=== PATIENT | male | born 1950 | race Caucasian/White ===

== ENCOUNTER 2023-05-24 13:19 | Outpatient (CLI) | payer MEDICARE, OTHER, SELFPAY ==
--- NOTE | 2023-05-24 13:25 | VDLE_ITS ---
Reason For Study: Pre op planning RIGHT LEFT GSV prox thigh - 0.57 x 0.65 cm GSV prox thigh - 0.58 x 0.58 cm GSV mid thigh - 0.58 x 0.62 cm GSV mid thigh - 0.50 x 0.50 cm GSV dist thigh - 0.46 x 0.47 cm GSV dist thigh - 0.43 x 0.44 cm GSV Knee - 0.40 x 0.43 cm GSV Knee - 0.38 x 0.43 cm GSV prox calf - 0.33 x 0.35 cm GSV prox calf - 0.42 x 0.43 cm GSV mid calf - 0.44 x 0.46 cm GSV mid calf - 0.25 x 0.26cm GSV dist calf - 0.34 x 0.36 cm GSV dist calf - 0.39 x 0.41 cm ASV prox thigh - 0.37 x 0.37 cm SSV prox calf - 0.21 x 24 cm ASV mid thigh - 0.31 x 0.33 cm SSV mid calf - 0.35 x 0.35 cm ASV dist thigh - 0.25 x 0.25 cm SSV dist calf - 0.34 x 0.37 cm ASV Knee - 0.29 x 0.32 cm Multiple branches noted coming off of the GSV SSV prox calf - 0.44 x 0.56 cm and SSV. SSV mid calf - 0.46 x 0.48 cm GSV, SSV and ASV all compressible. SSV dist calf - 0.39 x 0.42 cm Multiple branches noted coming off of the GSV, ASV and SSV. GSV, SSV and ASV all compressible. Procedure This is a venous duplex using B-mode, color flow and spectral Doppler. Exam performed in department. VL/Saphenous Vein Mapping, Bilat Interpretation Summary Right great saphenous and accessory saphenous veins patent with measurements ab ove. Right small saphenous vein patent with measurements above Left great saphenous veins patent with measurements above. Left small saphenous vein patent with measurements above Ordering Physician: Anurag Rodriguez Performed By: Micaela Jerry RVT
== END 2023-05-24 23:59 | disposition home or self-care (01) ==
PROVIDERS: Referring Provider Surgery Trauma Surgery; Visit Provider Surgery Trauma Surgery
DX: Z01.818 Encounter for other preprocedural examination (principal); I70.213 Atherosclerosis of native arteries of extremities with intermittent claudication, bilateral legs; M79.661 Pain in right lower leg; M79.662 Pain in left lower leg
CPT/HCPCS: 93970

== ENCOUNTER 2023-07-11 06:24 | Inpatient (IN) | payer MEDICARE, OTHER, SELFPAY ==
[2023-07-11] VITALS (19 sets, daily range): BP systolic 95–140; BP diastolic 54–73; PULSE 52–81; RESP 12–18; TEMP 36.2–36.5; O2SAT 92–99; BMI 26.1; BMI 26.2
[2023-07-11] MEDS: Lactated Ringers 1,000 ML 15 ML IV (06:57)
[2023-07-11 06:59] LABS: Hemoglobin 17.9 g/dL (13.0-16.5)
--- NOTE | 2023-07-11 07:31 | PCM.HP.STD ---
HPI - General General Date of Admission: 07/11/23 HPI Narrative FARIBA BANEGAS, is a 72 M who presents with right lower extremity claudication. He has failed medical tx and presents now for bypass. [facility] Medical History (Updated 07/05/23 @ 14:34 by Kelly Medina) Back pain Cardiology follow-up encounter Chronic cough Diabetes History of echocardiogram History of pain when walking History of recent vascular procedure (~11/2022) History of stress test Hyperlipidemia Hypertension Injury of head and neck Loss of hearing Pulmonary heart disease Restless legs Shortness of breath on exertion Smoker Wears glasses Home Medications alirocumab 75 mg/mL subcutaneous pen injector (Praluent Pen) 75 mg subcut Q14D CHOLESTEROL 12/19/22 [History Last Taken 07/10/23] aspirin 81 mg tablet,delayed release 81 mg PO DAILY HEART HEALTH 12/19/22 [History Last Taken 07/10/23] carvedilol 12.5 mg tablet (Coreg) 12.5 mg PO BID HEART 12/19/22 [History Last Taken 07/11/23 05:00] cholecalciferol (vitamin D3) 25 mcg (1,000 unit) capsule 25 mcg PO DAILY SUPPLEMENT 12/19/22 [History Last Taken 07/09/23] coenzyme Q10 100 mg capsule 100 mg PO DAILY SUPPLEMENT 12/19/22 [History Last Taken 07/09/23] ezetimibe 10 mg tablet (Zetia) 10 mg PO DAILY CHOLESTEROL 12/19/22 [History Last Taken 07/10/23] gabapentin 400 mg capsule (Neurontin) 400 mg PO TID NEUROPATHY 12/19/22 [History Last Taken 07/11/23] magnesium 200 mg tablet 400 mg PO DAILY SUPPLEMENT 12/19/22 [History Last Taken 07/09/23] oxycodone-acetaminophen 7.5 mg-325 mg tablet (Percocet) 1 tab PO Q6H PAIN 12/19/22 [History Last Taken 07/11/23 04:00] semaglutide 0.25 mg or 0.5 mg (2 mg/3 mL) subcutaneous pen injector (Ozempic) 0.5 mg subcut WE DIABETES 01/03/23 [History Last Taken 07/11/23 04:30] biotin 10,000 mcg capsule 10,000 mcg PO DAILY SUPPLEMENT 07/05/23 [History Last Taken 07/09/23] niacin 500 mg tablet 500 mg PO TID PVD 07/05/23 [History Last Taken 07/10/23] ropinirole 4 mg tablet 4 mg PO QHS RLS 07/05/23 [History Last Taken 07/10/23 19:00] vitamin B complex 1 cap PO DAILY SUPPLEMENT 07/05/23 [History Last Taken 07/10/23] Allergy/AdvReac Type Severity Reaction Status Date / Time No Known Allergies Allergy Verified 07/11/23 06:42 Family History Mother CAD (coronary artery disease) Father CAD (coronary artery disease) Surgical History (Updated 07/05/23 @ 14:34 by Klely Mednia) H/O hernia repair History of back surgery (~2014) History of coronary artery stent placement Hx of tonsillectomy S/P ablation of atrial fibrillation (~2013) Social History Smoking Status: Current every day smoker tobacco type: cigarettes Tobacco: How many years used: 30 alcohol intake: current substance use type: does not use ROS Constitutional Constitutional: Denies chills, fever(s), frequent falls, lethargy or weakness Eyes Eyes: Denies blind spots, change in vision or loss of vision ENT HEENT: Denies bleeding gums, hoarseness or sore throat Cardiovascular Cardiovascular: Denies abdominal pain, bluish discoloration of hand/feet, chest pain with activity, claudication, cold extremities, cyanosis, dyspnea on exertion, erythema on extremities, irregular heart rhythm, leg edema, leg ulcers, numbness in extremities or weakness in extremities Respiratory/Chest Respiratory/Chest: Denies cough, excessive phlegm production, shortness of breath at rest, shortness of breath with exertion or wheezing Gastrointestinal Gastrointestinal: Denies anorexia, change in stool character, constipation, diarrhea, melena or rectal bleeding Genitourinary Genitourinary: Denies dysuria or hematuria Musculoskeletal Musculoskeletal: Denies abnormal gait Integumentary Integumentary: Reports other Details: ; Denies erythema, non-healing lesions or wounds Neurologic Neurologic: Denies abnormal speech, focal weakness, headache(s), loss of vision, numbness, paresthesias or sensory deficit Hematologic/Lymphatic Hematologic/Lymphatic: Denies easy bleeding, easy bruising or lymphadenopathy Vital Signs Vital Signs Vital Signs: 07/11/23 06:46 07/11/23 06:48 Temperature 97.1 F L Temperature Source Temporal Pulse Rate 68 Respiratory Rate 18 Respiratory Pattern Normal Blood Pressure 124/63 H Blood Pressure Mean 83 Blood Pressure Source Monitor Blood Pressure Position Semi-Fowlers Blood Pressure Location Left Arm Pulse Ox 99 Oxygen Delivery Method Room Air Weight Weight: 177 lb Body Mass Index (BMI) 26.1 Physical Exam Const alert, oriented x3, no apparent distress and healthy appearing General Appearance: cooperative; Negative for combative or lethargic Orientation / Consciousness: awake Exam Limitations: no limitations HEENT Head and Scalp: normocephalic and atraumatic Eyes EOMs intact bilaterally General Eye: normal appearance of both eyes Neck full ROM, no lymphadenopathy, thyroid normal and No no carotid bruits General: trachea midline; Negative for lymphadenopathy or tenderness Thyroid: thyroid normal Lymph Lymphatic: Negative for no lymphadenopathy noted Resp normal respiratory effort, no use of accessory muscles and clear to auscultation bilaterally Effort and Inspection: Negative for labored, stridor or audible wheezes Cardio regular rate, regular rhythm and no murmurs Peripheral Pulses: brachial pulses present, radial pulses present, femoral pulses present, popliteal pulses present, posterior tibial pulses present and dorsalis pedis pulses present GI non-tender and non-distended; Negative for hepatosplenomegaly Back/Spine Cervical Spine: cervical ROM normal Extremity full ROM, normal capillary refill and no clubbing, cyanosis or edema Skin no rashes or lesions noted and no wounds Neuro oriented x3, CN's II-XII intact bilaterally, no focal motor deficits and no sensory deficits noted Psych thought process normal, cooperative, affect normal, speech normal and activity/motor behavior normal Results Lab / Micro Data 07/11/23 06:50 07/11/23 06:50 Labs: Laboratory Results - last 24 hr 07/11/23 06:50: Hgb 17.9 H, Potassium 4.0 Assessment & Plan Assessment/Plan (1) Atherosclerosis of [place] arteries of extremities with intermittent claudication, bilateral legs: PLAN: -right fem-pop with vein
[2023-07-11] MEDS: Cefazolin 2 GM in 0.9% Normal Saline (100mL Bag) 100 ML IV (07:42)
[2023-07-11 07:57] LABS: Bedside Glucose 91 mg/dL (74-106)
[2023-07-11 08:20] LABS: Hemoglobin A1c 5.7 % (3.8-5.6)
[2023-07-11] MEDS: Heparin 10,000 UNITS/10 ML Vial 10000 UNITS (08:24)
[2023-07-11] MEDS: Heparin Injection (Vial) 5,000 UNIT/ML VIAL 5000 UNIT (08:24)
[2023-07-11] MEDS: Cefazolin 1 GM/50 ML BAG IV ×2 (11:42→20:13)
[2023-07-11 12:45] LABS: Bedside Glucose 122 mg/dL (74-106)
--- NOTE | 2023-07-11 13:06 | PCM.OPRPT ---
Report of Operation Date of Procedure: 07/11/23 Pre-Operative Diagnosis: atherosclerosis with claudication right lower extremity Post-Operative Diagnosis: same Surgery/Procedure Performed:: right femoral-below knee popliteal bypass with reversed GSV Description of Surgical Findings:: +DP pulse Surgeon: Anurag Rodriguez Type of Anesthesia: General Estimated Blood Loss (mL): 200 Description of Procedure: HPI: Patient is a 72-year-old male with lifestyle limiting claudication right lower extremity. He has failed conservative therapy and did not have any good endovascular options so he presents now for right femoral to below-knee popliteal bypass with saphenous vein. Description of procedure: Upon obtaining informed consent and verification correct patient procedure site patient taken to the operating was placed under general anesthesia. He was then positioned prepped and draped in usual sterile fashion a timeout was performed. Ultrasound was used to lizzette the saphenous vein which was satisfactory in caliber throughout its length. Oblique incision was made 2 fingerbreadths inferior to the inguinal ligament above electrocautery to dissect down through subcutaneous tissue. Self-retaining retractors then put in position further dissection carried down to the femoral sheath. The femoral sheath was incised vertically and the self-retaining retractor moved deeper in the wound. Sharp dissection used dissect free the common femoral artery proximally up to the inguinal ligament distally down to its bifurcation. Writing was used to place a vessel proximal and distal and the vessel was noted to be soft with no plaque. Next longitudinal incision was made 2 fingerbreadths medial to the tibia and Bovie electrocautery was dissect down through subcutaneous tissue. At the superior aspect of the incision care was taken to identify and protect the saphenous vein. Dissection was then carried down to the fascia which was then incised and self-retaining retractors put in position. Next combination of blunt and Bovie dissection was used to dissect down to the popliteal vessels and sharp dissection used to dissect free the popliteal artery proximal and distal. The vessel was noted to be soft with no significant plaque and a right angle to place a vessel loop proximal and distal. Next the saphenous vein was exposed with a skip incision along the medial aspect of the thigh with side branches ligated with silk ties and divided. Once the entire length of the saphenous vein was dissected free and all sidebranches had been ligated a tunneler was then used to tunnel from the popliteal incision to the femoral incision in the anatomic space. Patient was then heparinized allowed circulate for 3 minutes. The distal aspect of the saphenous vein was then ligated with silk ties and divided and the vein pulled through each of the skip incisions up to the femoral incision. The saphenofemoral junction was then clamped and the vessel transected and placed within heparinized saline. The saphenofemoral junction stump was then oversewn with 5-0 Prolene in 2 layers. Next the vein was flushed heparinized saline it was noted that there was a an aneurysmal segment so this segment of the aneurysm was excised and the vessel closed with 6-0 Prolene in a running fashion. Otherwise all sidebranches were adequately controlled and there was no significant leak or stenosis when pressurized. The vein was then oriented in reverse fashion and the femoral vessels occluded with Vesseloops. A longitudinal arteriotomy was created 11 blade extended Morgan scissors after which the vein was beveled to match the arteriotomy and anastomosis performed with a 6-0 Prolene running fashion. After completing suture line the vessels were flushed and the graft and the clamps removed. Satisfactory stasis was noted from the suture line and the vein was allowed to pressurize. All sidebranches were intact and there was brisk pulsatile flow through the bypass. The vein was then marked to maintain orientation and secured to the tunneler then pulled through to the popliteal incision. Popliteal artery was then occluded with Vesseloops longitudinal arteriotomy was created with 11 blade and the Morgan scissors. The vein was then cut the length and beveled to match the arteriotomy after which it was secured with a 6-0 Prolene in a running fashion. Prior to completing suture line the graft and vessels were backbled and after completing suture line the clamps were removed. There is satisfactory stasis and there is palpable pulse across the anastomosis into the distal vessel. She is also noted a palpable dorsalis pedis and posterior tibial pulse in the foot. The incisions were then inspected hemostasis and the vein harvest sites incision closed with 3-0 Vicryl followed for Monocryl. The arterial sites were closed with 2-0 Vicryl, 3-0 Vicryl, 4 Monocryl and Dermabond for the skin. At the inclusion of case patient would have anesthesia taken recovery anticipated admission intensive care unit.
[2023-07-11 14:36] LABS: Bedside Glucose 116 mg/dL (74-106)
[2023-07-11] MEDS: 0.45% Normal Saline 1,000 ML 100 ML IV (15:20)
[2023-07-11] MEDS: Acetaminophen 500 MG Tablet 1000 MG PO ×2 (15:26→21:37)
[2023-07-11] MEDS: Gabapentin 400 MG Capsule PO ×2 (15:30→21:39)
[2023-07-11] MEDS: HYDROmorphone 0.5 MG/0.5 ML SYRINGE IV ×2 (15:30→23:13)
[2023-07-11 16:03] LABS: Bedside Glucose 118 mg/dL (74-106)
--- NOTE | 2023-07-11 16:41 | CASEMGMT ---
RN?CM?STRIP PICKER?CM?to room to meet with patient for initial transition planning/care coordination?assessment.?RN?CM?introduced self and role at [facility].? Pt voices understanding and consents to?assessment?at this time.? Pt resting in bed in no distress at this time.? and dtr @ bedside and pt agreeable to them both being present during assessment. Pt is A/O at this time and answers all questions appropriately.?? Care providers, pharmacy, and demographics verified/updated at this time. PCP: Dr Mode Joshi Specialists: Dr Rodriguez-vascular, Dr Clarke-ui designer @ [facility], Dr Christianson- [place] pulmonology, Dr Deleon-[place] pain mgnt, tenter frame operator in [place]--pt does not remember name. Preferred Pharmacy: [facility] Retail @ discharge Insurance: MCR, MMO Prescription Benefit:?yes Living Will/HPOA:?Has LW and HCPOA, who is his , Jayne. Pt states dtrAracely, is 1st alternative. LNOK: , Jayne. Dtr, Aracely Living Arrangements: Lives w/ in one-story home w/basement w/2 steps to enter. Pt states does okay w/the stairs. Pt does go to the basement to shower, but there is a bathroom on the main floor as well. Independent w/ADL's. Pt and share home mgnt tasks. Pt manages his own medications. Transportation:?Pt states drives self and states no transportation concerns at this time.? also drives. DME: ? Denies using any DME and denies needs.? He does have the following DME available, if needed: cane, walker, W/C, crutches HHC/SNF: No hx of either. Has done Cardiac Rehab in the past. PT/OT evals pending. Pt wishes to return home and states has no concerns with going home at time of discharge.? CM?to follow for any discharge planning/needs.? Pt voices no concerns/needs at this time.? Advised pt to ask for?CM?if any questions/concerns/needs arise.? Voices understanding. PLAN:??Home w/family support and discharge plans in place. PT/OT evals pending. Tena BSN?RN?CM
[2023-07-11] MEDS: oxyCODONE 5 MG Tablet PO ×2 (17:03→23:09)
[2023-07-11] MEDS: HEPARIN/D5w 25,000 UNITS 25,000 UNITS/250 ML IV.SOLN. 5 UNITS CONT INF (17:50)
[2023-07-11] MEDS: Pramipexole Di-HCl 1 MG Tablet 1.5 MG PO (17:50)
[2023-07-11] MEDS: Carvedilol 12.5 MG Tablet PO (21:38)
[2023-07-11 22:03] LABS: Bedside Glucose 158 mg/dL (74-106)
[2023-07-12] VITALS (16 sets, daily range): BP systolic 94–119; BP diastolic 34–74; PULSE 52–74; RESP 12–18; TEMP 36.5–36.6; O2SAT 92–99; BMI 26.9
[2023-07-12] MEDS: 0.45% Normal Saline 1,000 ML 100 ML IV (01:20)
[2023-07-12] MEDS: Cefazolin 1 GM/50 ML BAG IV (03:24)
[2023-07-12] MEDS: HYDROmorphone 0.5 MG/0.5 ML SYRINGE IV (03:26)
[2023-07-12] MEDS: oxyCODONE 5 MG Tablet PO ×3 (05:03→13:40)
[2023-07-12] MEDS: Acetaminophen 500 MG Tablet 1000 MG PO ×2 (05:04→13:40)
[2023-07-12] MEDS: Gabapentin 400 MG Capsule PO ×2 (05:04→13:40)
[2023-07-12 05:21] LABS: Absolute Lymphocyte Count 1.16 X10^3/uL (0.83-4.51); Absolute Neutrophil Count 9.3 X10^3/uL (2.0-7.7); Basophil# 0.02 X10^3/uL; Basophil% 0.2 % (0-1); Hematocrit 45.1 % (40-54); Hemoglobin 14.8 g/dL (13.0-16.5); Lymphocyte # 1.16 X10^3/ul (0.83-4.51); Mean Corp Hgb Conc 32.8 g/dL (32-36); Mean Corpuscular Hgb 30.2 pg (27.0-32.0); Mean Platelet Vol. 9.7 fl (6.2-12.0); Monocyte# 0.98 X10^3/uL; Monocyte% 8.5 % (0-10); NRBC Flagged by Analyzer 0 % (0-5); Neutrophil # 9.33 X10^3/uL (2.7-7.7); Neutrophil % 80.6 % (47-70); Platelet Count 143 K/mm3 (150-450); RBC Distribution Width CV 16.3 % (11.6-14.6); RBC Distribution Width SD 55.6 fl (35.1-43.9); White Blood Count 11.6 K/mm3 (4.4-11.0)
[2023-07-12 05:41] LABS: Anion Gap 2 (5-15); BUN 13 mg/dL (7-18); BUN/Creat Ratio 19.7 RATIO (10-20); Calcium,Total 7.4 mg/dL (8.5-10.1); Chloride 110 mmol/L (98-107); Creatinine, Serum 0.66 mg/dL (0.70-1.30); EST Glomerular Filtration Rate 127 mL/min (>60); Est Glom Filt Rate - Afr Amer 153 mL/min (>60); Estimated Creatinine Clearance 65.55 ml/min; Glucose 150 mg/dL (74-106); Sodium Level 139 mmol/L (136-145)
--- NOTE | 2023-07-12 08:22 | PCM.PN.SRG ---
Subjective Subjective Patient is doing okay this morning. Reports pain is currently tolerable, but he has not moved very much yet. He tolerated normal dinner last night. Denies N/V, chills, CP, SOB, palpitations, presyncope. Objective Data Objective Data Vital Signs: Vital Signs Temp Pulse Resp BP Pulse Ox O2 Del Method O2 Flow Rate 97.7 F L 69 15 104/54 L 95 Nasal Cannula 2 07/12/23 03:00 07/12/23 07:00 07/12/23 07:00 07/12/23 07:00 07/12/23 08:09 07/12/23 08:09 07/12/23 08:09 Oxygen Flow Rate (L/min) 2 Oxygen Delivery Method Nasal Cannula Weight: 181 lb 14.102 oz Body Mass Index (BMI) 26.9 Intake & Output: Intake and Output for Last 24 Hours 07/10/23 07/11/23 07/12/23 23:59 23:59 23:59 Intake Total 2352 / 2352 1050 / 1050 Output Total 1085 / 2085 1650 / 1650 Balance 1267 / 267 -600 / -600 Lab / Micro Data 07/12/23 05:10 07/12/23 05:10 Labs: Laboratory Results - last 24 hr 07/11/23 06:50: Blood Type A POSITIVE, Antibody Screen NEGATIVE 07/11/23 12:11: POC Glucose 122 H 07/11/23 13:29: POC Glucose 116 H 07/11/23 15:27: POC Glucose 118 H 07/11/23 21:36: POC Glucose 158 H 07/12/23 05:10: WBC 11.6 H, RBC 4.90, Hgb 14.8, Hct 45.1, MCV 92.0, MCH 30.2, MCHC 32.8, RDW Std Deviation 55.6 H, RDW Coeff of [place] 16.3 H, Plt Count 143 L, MPV 9.7, Immature Gran % (Auto) 0.700, Neut % (Auto) 80.6 H, Lymph % (Auto) 10.0 L, [place] % (Auto) 8.5, Eos % (Auto) 0.0, Baso % (Auto) 0.2, Absolute Neuts (auto) 9.3 H, Absolute Lymphs (auto) 1.16, Nucleated RBC % 0, Sodium 139, Potassium 4.0, Chloride 110 H, Carbon Dioxide 27.0, Anion Gap 2 L, BUN 13, Creatinine 0.66 L, Estim Creat Clear Calc 65.55, Est GFR (MDRD) Af Amer 153, Est GFR (MDRD) Non-Af 127, BUN/Creatinine Ratio 19.7, Glucose 150 H, Calcium 7.4 L Physical Exam Const alert, oriented x3 and no apparent distress General Appearance: cooperative HEENT normocephalic, head/scalp atraumatic, hearing grossly normal bilaterally, external ears normal and external nose normal Eyes EOMs intact bilaterally General Eye: normal appearance of both eyes Neck General: normal visual inspection and trachea midline Resp normal respiratory effort, no retractions and no use of accessory muscles Effort and Inspection: able to speak in complete sentences; Negative for labored, grunting, stridor or audible wheezes Cardio regular rate and regular rhythm Extremity Extremity Narrative: RLE warm and pink, palpable DP/PT pulses R groin incision with vacuum dressing overlying C/D/I, maintaining seal; R thigh and R calf incision sites with silver dressings overlying C/D/I; no significant swelling, ecchymosis, erythema. Skin no rashes or lesions noted Neuro CN's II-XII intact bilaterally, moves all extremities, no focal motor deficits and no sensory deficits noted Speech: speech normal Psych mental status grossly normal Appearance: grossly normal Attitude: calm and engaged Activity / Motor Behavior: appropriate eye contact Speech: normal speech Mood & Affect: euthymic mood Assessment & Plan Assessment/Plan (1) Atherosclerosis of [place] arteries of extremities with intermittent claudication, bilateral legs: PLAN: Patient is s/p R fem-pop bypass on 07/11/23. Palpable R DP/PT pulses. He is tolerating normal intake to this point, will discontinue IVF. Continue heparin at 500 u/hr. D/c lima catheter. Will have him ambulate/get up to chair with nursing/PT later this morning. Will continue to monitor, pending how he progresses through the day with voiding/ambulation/pain control d/c this afternoon or tomorrow morning.
[2023-07-12] MEDS: Magnesium Chloride 64 MG Delay Rel.Tablet 128 MG PO (08:42)
[2023-07-12] MEDS: Cholecalciferol (VIT D3) 25 MCG TABLET (1,000 UNITS) PO (08:42)
[2023-07-12] MEDS: Aspirin E.C. 81 MG Tablet PO (08:43)
[2023-07-12] MEDS: Vitamin B Comp W-C Capsule 1 CAP PO (08:43)
[2023-07-12] MEDS: Carvedilol 12.5 MG Tablet PO (08:44)
[2023-07-12] MEDS: Ezetimibe 10 MG Tablet PO (08:44)
--- NOTE | 2023-07-12 13:58 | PCM.DC.SUM ---
Providers Date of Admission: 07/11/23 Primary Care Physician: ANDRE RAMSEY Reason For Visit: Fem-Pop Bypass Diagnosis Discharge Diagnosis (1) Atherosclerosis of [place] arteries of extremities with intermittent claudication, bilateral legs: Status: Chronic Code(s): I70.213 - Atherosclerosis of [place] arteries of extremities with intermittent claudication, bilateral legs Plan: Patient is s/p R fem-pop bypass on 07/11/23. Palpable R DP/PT pulses. He is tolerating normal intake to this point, will discontinue IVF. Continue heparin at 500 u/hr. D/c lima catheter. Will have him ambulate/get up to chair with nursing/PT later this morning. Will continue to monitor, pending how he progresses through the day with voiding/ambulation/pain control d/c this afternoon or tomorrow morning. Medications at Discharge Home Medications alirocumab 75 mg/mL subcutaneous pen injector (Praluent Pen) 75 mg subcut Q14D CHOLESTEROL 12/19/22 aspirin 81 mg tablet,delayed release 81 mg PO DAILY HEART HEALTH 12/19/22 carvedilol 12.5 mg tablet (Coreg) 12.5 mg PO BID HEART 12/19/22 cholecalciferol (vitamin D3) 25 mcg (1,000 unit) capsule 25 mcg PO DAILY SUPPLEMENT 12/19/22 coenzyme Q10 100 mg capsule 100 mg PO DAILY SUPPLEMENT 12/19/22 ezetimibe 10 mg tablet (Zetia) 10 mg PO DAILY CHOLESTEROL 12/19/22 gabapentin 400 mg capsule (Neurontin) 400 mg PO TID NEUROPATHY 12/19/22 magnesium 200 mg tablet 400 mg PO DAILY SUPPLEMENT 12/19/22 oxycodone-acetaminophen 7.5 mg-325 mg tablet (Percocet) 1 tab PO Q6H PAIN 12/19/22 semaglutide 0.25 mg or 0.5 mg (2 mg/3 mL) subcutaneous pen injector (Ozempic) 0.5 mg subcut WE DIABETES 01/03/23 biotin 10,000 mcg capsule 10,000 mcg PO DAILY SUPPLEMENT 07/05/23 niacin 500 mg tablet 500 mg PO TID PVD 07/05/23 ropinirole 4 mg tablet 4 mg PO QHS RLS 07/05/23 vitamin B complex 1 cap PO DAILY SUPPLEMENT 07/05/23 oxycodone 10 mg tablet 10 mg PO Q8H PRN pain 7 days #21 tabs 07/12/23 Hospital Course Summary of Care Provided Hospital Course: Mr. Harden is a 72-year-old male who underwent right femoral-popliteal artery bypass by Dr. Rodriguez on 07/11/2023 for lifestyle limiting claudication. He tolerated the surgery well and was routinely admitted to the ICU postoperatively for hemodynamic monitoring. He has remained hemodynamically stable throughout his admission. He is tolerating normal diet, voiding without difficulty, ambulating well, and his post-operative pain is well controlled on oral medication regimen. He does follow with pain management as an outpatient, they are aware of his surgery and agreeable for us to prescribed pain medication to manage his post-op pain, he next follows up with them on 07/21/2023. Follow-up with our office is 08/02/2023. He is discharged home in medically stable condition. Physical Exam Const alert, oriented x3 and no apparent distress General Appearance: cooperative HEENT normocephalic, head/scalp atraumatic, hearing grossly normal bilaterally, external ears normal and external nose normal Eyes EOMs intact bilaterally General Eye: normal appearance of both eyes Neck General: normal visual inspection and trachea midline Resp normal respiratory effort, no retractions and no use of accessory muscles Effort and Inspection: able to speak in complete sentences; Negative for labored, grunting, stridor or audible wheezes Cardio regular rate and regular rhythm Extremity Extremity Narrative: RLE warm and pink, palpable DP/PT pulses R groin incision with vacuum dressing overlying C/D/I, maintaining seal; R thigh and R calf incision sites with silver dressings overlying C/D/I; no significant swelling, ecchymosis, erythema. Skin no rashes or lesions noted Neuro CN's II-XII intact bilaterally, moves all extremities, no focal motor deficits and no sensory deficits noted Speech: speech normal Psych mental status grossly normal Appearance: grossly normal Attitude: calm and engaged Activity / Motor Behavior: appropriate eye contact Speech: normal speech Mood & Affect: euthymic mood Weight / BMI Weight Weight: 181 lb 14.102 oz Body Mass Index (BMI) 26.9 ABG / Lab / Microbiology Data 07/12/23 05:10 07/12/23 05:10 Laboratory: Laboratory Results - last 24 hr 07/11/23 13:29: POC Glucose 116 H 12/05/23 15:27: POC Glucose 118 H 07/11/23 21:36: POC Glucose 158 H 07/12/23 05:10: WBC 11.6 H, RBC 4.90, Hgb 14.8, Hct 45.1, MCV 92.0, MCH 30.2, MCHC 32.8, RDW Std Deviation 55.6 H, RDW Coeff of [place] 16.3 H, Plt Count 143 L, MPV 9.7, Immature Gran % (Auto) 0.700, Neut % (Auto) 80.6 H, Lymph % (Auto) 10.0 L, Tillman % (Auto) 8.5, Eos % (Auto) 0.0, Baso % (Auto) 0.2, Absolute Neuts (auto) 9.3 H, Absolute Lymphs (auto) 1.16, Nucleated RBC % 0, Sodium 139, Potassium 4.0, Chloride 110 H, Carbon Dioxide 27.0, Anion Gap 2 L, BUN 13, Creatinine 0.66 L, Estim Creat Clear Calc 65.55, Est GFR (MDRD) Af Amer 153, Est GFR (MDRD) Non-Af 127, BUN/Creatinine Ratio 19.7, Glucose 150 H, Calcium 7.4 L D/C Instructions Discharge Diet: Carb Control Diet May shower in (days): 1 Weight Bearing Status: Weight bearing as tolerated Lifting Restricted to (Lbs): 20 Lifting Restrictions: Do not lift greater than 20 pounds for 3 weeks Call your doctor if your incision/area has: Sudden Increased Bleeding and Increased Pain/ Swelling Call your doctor if you observe: Fever of 101 or Higher and Uncontrolled pain Additional Dressing/Incision Instructions: Additional Instructions: There is a Prevena vacuum dressing covering the right groin incision. This dressing should stay in place for 1 week if possible, until 07/18/2023. If it begins to alarm, malfunction, or does not hold seal you may remove it sooner if needed. Otherwise, you may remove it in 1 week by first holding down the power button until it turns off, then twist the white connector to disconnect the tubing at which point the purple foam will puff up, and then you can just peel the dressing off. You may throw the entire unit away in your trash at home. Please call the office with any questions or concerns about this. The right leg incisions are covered with an adhesive surgical dressings. These dressings should also remain in place for 1 week if possible as long as they remain clean and dry. All of the incisions are covered by surgical glue which will continue to protect them so once you remove these dressings you can leave the incisions open to air. The surgical glue will peel off on its own over the next couple of weeks, do not pick at it. Do not submerge/soak the incision sites, such as to take a bath/go swimming/etc. for 3 weeks. You may shower tomorrow. Do not lift greater than 20 pounds for 3 weeks. Otherwise, you may continue with activity as tolerated. You have been prescribed oxycodone 10mg to be taken every 8 hours as needed for pain. Additionally, you may take Tylenol every 4-6 hours as needed. Do not take in combination with any other prescription pain medications. Follow-up in the office as scheduled on 08/02/2023. If you have any questions or need to change your appointment please call the office at [phone]. Please Follow Up With: Alejandra Uribe PA When: 08/02/2023 Meaningful Use Info Meaningful Use Diagnoses (Choose all that apply): None applicable Discharge Plan Admission Admit Date/Time: 07/11/23 06:24 Primary Reason for Your Visit: R femoral-popliteal artery bypass Attending Provider: Anurag Rodriguez Primary Care Provider: ANDRE RAMSEY Instructions Additional Instructions / Restrictions: There is a Prevena vacuum dressing covering the right groin incision. This dressing should stay in place for 1 week if possible, until 07/18/2023. If it begins to alarm, malfunction, or does not hold seal you may remove it sooner if needed. Otherwise, you may remove it in 1 week by first holding down the power button until it turns off, then twist the white connector to disconnect the tubing at which point the purple foam will puff up, and then you can just peel the dressing off. You may throw the entire unit away in your trash at home. Please call the office with any questions or concerns about this. The right leg incisions are covered with an adhesive surgical dressings. These dressings should also remain in place for 1 week if possible as long as they remain clean and dry. All of the incisions are covered by surgical glue which will continue to protect them so once you remove these dressings you can leave the incisions open to air. The surgical glue will peel off on its own over the next couple of weeks, do not pick at it. Do not submerge/soak the incision sites, such as to take a bath/go swimming/etc. for 3 weeks. You may shower tomorrow. Do not lift greater than 20 pounds for 3 weeks. Otherwise, you may continue with activity as tolerated. You have been prescribed oxycodone 10mg to be taken every 8 hours as needed for pain. Additionally, you may take Tylenol every 4-6 hours as needed. Do not take in combination with any other prescription pain medications. Follow-up in the office as scheduled on 08/02/2023. If you have any questions or need to change your appointment please call the office at [phone]. Discharge Orders/Prescriptions Prescriptions: New oxycodone 10 mg tablet 10 mg PO Q8H PRN (Reason: pain) 7 Days Qty: 21 0RF Continued aspirin 81 mg tablet,delayed release (DR/EC) 81 mg PO DAILY carvedilol [Coreg] 12.5 mg tablet 12.5 mg PO BID Rx Instructions: must administer with a meal/food cholecalciferol (vitamin D3) 25 mcg (1,000 unit) capsule 25 mcg PO DAILY coenzyme Q10 100 mg capsule 100 mg PO DAILY ezetimibe [Zetia] 10 mg tablet 10 mg PO DAILY gabapentin [Neurontin] 400 mg capsule 400 mg PO TID magnesium 200 mg tablet 400 mg PO DAILY Praluent Pen 75 mg/mL pen injector 75 mg subcut Q14D Ozempic 0.25 mg or 0.5 mg (2 mg/3 mL) pen injector 0.5 mg subcut WE vitamin B complex Capsule 1 cap PO DAILY niacin 500 mg tablet 500 mg PO TID biotin 10,000 mcg capsule 10,000 mcg PO DAILY ropinirole 4 mg tablet 4 mg PO QHS Patient Comments: take 1 tablet by mouth 1 to 3 hours before BEDTIME once daily 90 DAYS Held oxycodone-acetaminophen [Percocet] 7.5-325 mg tablet 1 tab PO Q6H Hold Instructions: Resume on 07/21/23. Until you follow-up with your pain management provider Referrals / Follow Up: Care Physician,No Primary [Non-Staff] - Disposition Disposition (needs filled in before D/C Order can be placed): Home, Self Care
== END 2023-07-12 15:00 | disposition home or self-care (01) | DRG 253 ==
LOC: ACINP 06:33 → ICU 07-12 02:32
PROVIDERS: Anesthesiology; Admitting Provider Surgery Trauma Surgery; Referring Provider Surgery Trauma Surgery; Visit Provider Surgery Trauma Surgery
PROC: 041K09L Bypass Right Femoral Artery to Popliteal Artery with Autologous Venous Tissue, Open Approach (ICD-10-PCS; principal; 2023-07-11 07:00)
DX: I70.213 Atherosclerosis of native arteries of extremities with intermittent claudication, bilateral legs (principal); I70.92 Chronic total occlusion of artery of the extremities; E11.51 Type 2 diabetes mellitus with diabetic peripheral angiopathy without gangrene; I10 Essential (primary) hypertension; E78.5 Hyperlipidemia, unspecified; F17.210 Nicotine dependence, cigarettes, uncomplicated; I25.10 Atherosclerotic heart disease of native coronary artery without angina pectoris; Z79.82 Long term (current) use of aspirin; Z95.5 Presence of coronary angioplasty implant and graft; Z79.01 Long term (current) use of anticoagulants
CPT/HCPCS: 80048; 82962; 83036; 84132; 85018; 85025; 86850; 86900; 86901; 94668; 97802; 99252; 99406; A4648; J7040; J7120; G0463; J2405

== ENCOUNTER → 2023-10-05 | Outpatient (CLI) | payer MEDICARE, OTHER, SELFPAY ==
--- NOTE | 2023-10-05 13:37 | ART_ITS ---
Reason For Study: s/p fem-pop bypass Procedure A bilateral lower extremity continuous wave Doppler with analog waveform analysis and ankle brachial indexes. Left Segmental Pressures Left brachial= 108mmHg. Left posterior tibial artery = 97mmHg. Left dorsalis pedis artery = 99mmHg. Left digit = 81 mmHg. The left dorsalis pedis waveforms are biphasic. The left posterior tibial artery waveforms are biphasic. Right Segmental Pressures Right brachial= 113mmHg. Right posterior tibial artery = 150mmHg. Right dorsalis pedis artery = 129mmHg. Right digit = 98 mmHg. The right posterior tibial artery waveforms are triphasic. The right dorsalis pedis waveforms are biphasic. Indices The right ankle brachial index by the dorsalis pedis is 1.14. The right ankle brachial index by the posterior tibial artery is 1.33. The right digital-brachial index is .87. The left ankle brachial index by the dorsalis pedis is .88. The left ankle brachial index by the posterior tibial artery is .86. The left digital-brachial index is .72. VL/Ankle Brachial Index Interpretation Summary Right WALDO 1.33, normal. TBI and Doppler/PVR waveforms of the right normal at re st. Left WALDO 0.88, moderate arterial insufficiency. Doppler/PVR waveforms of the le ft ankle moderately diminished at rest. Ordering Physician: Alejandra Uribe Performed By: Panfilo Coats RVBakari
--- NOTE | 2023-10-05 13:37 | ADUL_ITS ---
Reason For Study: s/p fem-pop bypass Right Velocities Inflow art 154.8 cm/s Prox anast 126.7 cm/s Prox graft 329.2 cm/s Mid graft 330.4 cm/s Dist graft 60.1 cm/s Dist anast 125.3cm/s Outflow 107.0cm/s. VL/US Art Duplex Unilat Lower Ext Interpretation Summary Patent right femoral-popliteal bypass graft with elevated velocities mid graft suggesting >50% stenosis. Ordering Physician: Alejandra Uribe Performed By: Panfilo Coats, RVT
--- OUTSIDE RECORDS SUMMARY | 2023-10-05 21:01 | XMS RPT_ITS | CCD ---
Author Name Unknown Address [address] [facility] [address] [place] [address] Organization [facility] Care Team Providers Care Director Of Retail Name Role Phone Lilly Barbosa I Primary Care Provider Jessica Lowe Primary Care Provider Lilly Barbosa MD, I Primary Care Provider [phone] No, PCP Primary Care Unavailable PROVIDER, UNKNOWN Referring Unavailable THERON DAVID Attending Unavailable Jacek Vasquez Attending Unavailable No, PCP Primary Care Unavailable PROVIDER, UNKNOWN Referring Unavailable LavontrTheron valencia DO Primary Care Provider [phone] Andre Ramsey DO Primary Care Provider Andre Ramsey DO Primary Care Provider Theron David DO Unavailable THERON DAVID Admitting Unavailable THERON DAVID Attending Unavailable ROXY, ANDRE Primary Care Unavailable THERON DAVID Attending Unavailable BUDDYR, ANDRE Primary Care Unavailable THERON DAVID Attending Unavailable BUDDYR, ANDRE Primary Care Unavailable LAVINIA NORMAN Attending Unavailable THERON DAVID Primary Care Unavailable JESSICAOLTHERON WIGGINS Attending Unavailable BUDDYR, ANDRE Primary Care Unavailable KRISTIAN FLORES Attending Unavailable LILLY BARBOSA Primary Care Unavailable THERON DAVID Attending Unavailable THERON DAVID Referring Unavailable ROXY, ANDRE Primary Care Unavailable TAMMI PULLIAM Attending Unavailable TAMMI PULLIAM Referring Unavailable ROXY, ANDRE Primary Care Unavailable THERON DAVID Attending Unavailable THERON DAVID Referring Unavailable THERON DAVID Primary Care Unavailable THERON DAVID Attending Unavailable LILLY BARBOSA Primary Care Unavailable THERON DAVID Attending Unavailable THERON DAVID Referring Unavailable THERON DAVID Primary Care Unavailable THERON DAVID Attending Unavailable THERON DAVID Referring Unavailable ANDRE RAMSEY Primary Care Unavailable THERON DAVID Attending Unavailable ROXY ANDRE Primary Care Unavailable TAMMI PULLIAM Referring Unavailable Allergies Allergy Classification Reported Allergen(s) Allergy Type Date of Onset Reaction(s) Facility (2 sources) Seasonal allergy Propensity to adverse reactions to substance 05-13-2020 [place], [place] (12 sources) Isosorbide Dinitrate Drug Allergy 12-05-[address] [facility] Medications Current Medications Medication Drug Class(es) Dates Sig (Normalized) Sig (Original) acetaminophen 325 mg oral tablet (1 source) Start: 05-24-2019 acetaminophen (TYLENOL) tablet 650 mg acetaminophen 325 mg / oxyCODONE hydrochloride 7.5 mg oral tablet (20 sources) Opioid Agonist Start: 08-05-2022 take 1 tablet by mouth every six hours as needed oxyCODONE-acetamino phen (Percocet) 7.5-325 MG tablet 1 TABLET NEEDED ORALLY EVERY 6 HRS 28 DAYS 0 08/05/2022 Active Completed/Discontinued Medications Medication Drug Class(es) Dates Sig (Normalized) Sig (Original) 250 ml DOBUTamine 1 mg/ml injection (1 source) beta-Adrenergic Agonist Start: 06-27-2023 End: 06-28-2023 DOBUTamine (Dobutrex) 250 mg in dextrose 5 % 250 mL infusion (premix) 24 hr isosorbide mononitrate 60 mg extended release oral tablet (4 sources) Nitrate Vasodilator Start: 09-06-2022 End: 09-06-2023 take 1 tablet by mouth once daily isosorbide mononitrate ER (Imdur) 60 MG 24 hr tablet Take 1 tablet (60 mg) by mouth daily. Do not crush or chew. 30 tablet 09/06/2022 11/16/2022 Discontinued (Side effects) perflutren protein A microsphere (Optison) 3 mL in sodium chloride (PF) 0.9 % 10 mL IV syringe (1 source) Start: 06-27-2023 End: 06-27-2023 perflutren protein A microsphere (Optison) 3 mL in sodium chloride (PF) 0.9 % 10 mL IV syringe 50 ml sodium chloride 9 mg/ml injection (11 sources) Start: 06-27-2023 End: 06-27-2023 sodium chloride 0.9 % bolus 500 mL Problems Active Problems Problem Classification Problem Date Documented Da te Episodic/Chronic Cardiac dysrhythmias (20 sources) Paroxysmal atrial fibrillation; Translations: [Paroxysmal atrial fibrillation] Onset: 11-10-2017 11-10-2017 Chronic Coronary atherosclerosis and other heart disease (20 sources) Preinfarction syndrome; Translations: [Coronary atherosclerosis] Onset: 12-05-2017 Resolved: 06-10-2019 05-24-2019 Chronic Diabetes mellitus with complications (2 sources) Other specified diabetes mellitus with other specified complication; Translations: [Type 1 diabetes mellitus with diabetic peripheral angiopathy without gangrene] Onset: 07-05-2023 Chronic Diabetes mellitus without complication (3 sources) Type 2 diabetes mellitus without complication; Translations: [Type 2 diabetes mellitus without complications] Onset: 10-14-2022 Chronic Disorders of lipid metabolism (20 sources) Hyperlipidemia; Translations: [Hyperlipidemia, unspecified] Onset: 01-26-2018 01-26-2018 Chronic Essential hypertension (20 sources) Essential hypertension; Translations: [Hypertensive disorder] Onset: 01-12-2017 Resolved: 06-10-2019 01-26-2018 Chronic Nutritional deficiencies (3 sources) Vitamin D deficiency; Translations: [Vitamin D deficiency, unspecified] Onset: 10-14-2022 Chronic Other connective tissue disease (3 sources) Pain in right lower limb; Translations: [Pain in right leg] Onset: 07-17-2023 07-17-2023 Episodic Other connective tissue disease (1 source) Pain in right leg; Translations: [Pain in right leg] Onset: 07-17-2023 Episodic Other endocrine disorders (1 source) Drug-induced adrenocortical insufficiency; Translations: [Drug-induced adrenocortical insufficiency] Chronic Other endocrine disorders (2 sources) Testicular hypofunction; Translations: [Testicular hypofunction] Onset: 10-14-2022 Chronic Other endocrine disorders (2 sources) Drug-induced adrenocortical insufficiency; Translations: [Drug-induced adrenocortical insufficiency (HCC)] Onset: 10-14-2022 Chronic Other endocrine disorders (1 source) Testicular hypofunction; Translations: [Testicular hypofunction] Onset: 10-14-2022 Chronic Peripheral and visceral atherosclerosis (20 sources) Peripheral vascular disease, unspecified; Translations: [Peripheral vascular disease, unspecified] Onset: 01-20-2021 01-20-2021 Chronic Pulmonary heart disease (20 sources) Pulmonary heart disease; Translations: [Cor pulmonale] Onset: 11-10-2017 11-10-2017 Chronic Residual codes; unclassified (2 sources) Tobacco user; Translations: [Tobacco abuse] Onset: 12-05-2017 01-26-2018 Chronic Residual codes; unclassified (2 sources) Insomnia co-occurrent and due to medical condition; Translations: [Insomnia due to medical condition] Onset: 10-14-2022 Chronic Residual codes; unclassified (1 source) Insomnia due to medical condition; Translations: [Insomnia due to medical condition] Onset: 10-14-2022 Chronic Substance-related disorders (1 source) Nicotine dependence, unspecified, uncomplicated; Translations: [Smoking] Onset: 07-05-2023 Chronic Thyroid disorders (3 sources) Hypothyroidism; Translations: [Hypothyroidism, unspecified] Onset: 10-14-2022 Chronic Past or Other Problems Problem Classification Problem Date Documented Date Episodic/Chronic Nonspecific chest pain (20 sources) Chest pain at rest; Translations: [Chest pain] Onset: 11-10-2017 Resolved: 06-09-2020 11-10-2017 Episodic Nutritional deficiencies (3 sources) Vitamin B deficiency; Translations: [Deficiency of other specified B group vitamins] Onset: 10-14-2022 Episodic Other aftercare (2 sources) residential (current) use of aspirin; 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] Onset: 09-15-2021 Episodic Other circulatory disease (2 sources) Disorder of coronary artery; Translations: [Coronary artery disease with angina pectoris] Onset: 01-26-2018 Resolved: 06-10-2019 06-10-2019 Chronic Other connective tissue disease (20 sources) Full thickness rotator cuff tear; Translations: [Complete rotator cuff tear or rupture of left shoulder, not specified as traumatic] Onset: 09-22-2015 09-01-2022 Episodic Other connective tissue disease (20 sources) Impingement syndrome of left shoulder region; Translations: [Impingement syndrome of left shoulder] Onset: 09-22-2015 09-01-2022 Episodic Other nutritional; endocrine; and metabolic disorders (2 sources) Abnormal weight gain; Translations: [Abnormal weight gain] Onset: 10-14-2022 Episodic Other nutritional; endocrine; and metabolic disorders (1 source) Abnormal weight gain; Translations: [Abnormal weight gain] Onset: 10-14-2022 Episodic Other screening for suspected conditions (not mental disorders or infectious disease) (11 sources) Thallium stress test abnormal; Translations: [Abnormal result of other cardiovascular function study] Onset: 05-19-2022 Resolved: 12-07-2017 12-07-2017 Episodic Residual codes; unclassified (20 sources) Tobacco user; Translations: [Tobacco use] Onset: 12-05-2017 01-26-2018 Episodic Screening and history of mental health and substance abuse codes (2 sources) Personal history of nicotine dependence; Translations: [Personal history of nicotine dependence] Onset: 09-15-2021 Episodic Results Test Name Value Interpretation Reference Range Facil ity Vital Signs Date Time Vital Sign Value Performing Clinician Yolande litjuliana 06-27-2023 12:57-0500 Body height 172.7 cm Theron Longo O Work Phone: [facility] [employer] 06-27-2023 12:57-0500 Body mass index (BMI) [Ratio] 25.09 kg/m2 Theron David DO Work Phone: [facility] [employer] 06-27-2023 12:57-0500 Body weight 74.84 kg Theron Longo O Work Phone: [facility] [employer] 12-05-2022 16:00-0400 Body height 177.8 cm Theron Longo O Work Phone: [facility] [employer] 12-05-2022 16:00-0400 Body mass index (BMI) [Ratio] 28.7 kg/m2 Theron David DO Work Phone: [facility] [employer] 12-05-2022 16:00-0400 Body weight 90.72 kg Theron Longo O Work Phone: [facility] [employer] 12-05-2022 16:00-0400 Diastolic blood pressure 68 mm[Hg] Theron Lavontrolungo DO Work Phone: [facility] [employer] 12-05-2022 16:00-0400 Heart rate 76 /min Theron Dolltrolungo D O Work Phone: [facility] [employer] 12-05-2022 16:00-0400 Systolic blood pressure 134 mm[Hg] Theron Lavontrolungo DO Work Phone: [facility] 11-24-2022 15:00-0400 Diastolic blood pressure 68 mm[Hg] Theron Dolltrolungo DO Work Phone: [facility] [employer] 11-24-2022 15:00-0400 Heart rate 59 /min Theron Dolltrolungo D O Work Phone: [facility] 11-24-2022 15:00-0400 Respiratory rate 18 /min Theron Dolltrolungo D O Work Phone: [facility] 11-24-2022 15:00-0400 Systolic blood pressure 135 mm[Hg] Theron Dolltrolungo DO Work Phone: [facility] 11-24-2022 14:30-0400 SaO2% (BldA) [Mass fraction] 96 % Theron Pietrolungo DO Work Phone: [facility] 11-24-2022 13:18-0400 Body temperature 97 [degF] Theron Dolltrolungo D O Work Phone: [facility] 11-16-2022 13:54-0400 Body height 177.8 cm Theron Dolltrolungo D O Work Phone: [facility] [employer] 11-16-2022 13:54-0400 Body mass index (BMI) [Ratio] 29.07 kg/m2 Theron Lavontrolungo DO Work Phone: [facility] [employer] 11-16-2022 13:54-0400 Body weight 91.9 kg Theron Dolltrolungo D O Work Phone: [facility] [employer] 11-16-2022 13:54-0400 Diastolic blood pressure 74 mm[Hg] Theron David DO Work Phone: [facility] 11-16-2022 13:54-0400 Heart rate 64 /min Theron David D O Work Phone: [facility] 11-16-2022 13:54-0400 Systolic blood pressure 127 mm[Hg] Theron David DO Work Phone: [facility] 05-24-2019 13:45-0400 BP Diastolic 68 mm[Hg] [place] 05-24-2019 13:45-0400 BP Systolic 117 mm[Hg] [place] 05-24-2019 13:45-0400 Pulse (Heart Rate) 70 /min [place], [place] 05-24-2019 13:45-0400 Respiratory Rate 19 /min [place] 05-24-2019 11:39-0400 Body Temperature 97.2 [degF] [place] 05-24-2019 09:15-0400 BMI (Body Mass Index) 26.26 kg/m2 [place] 05-24-2019 09:15-0400 Body weight 83.01 kg [place] 05-24-2019 09:15-0400 Height 177.8 cm [place] 05-24-2019 09:15-0400 Pulse Oximetry 97 % [place] Encounters Encounter Date Encounter Type Care Provider Facility Start: 09-28-2023 Telephone encounter Emma Ghosh [facility] Pulmonary and Sleep Medicine Procedures Date Procedure Procedure Detail Performing Clinician Start: 07-05-2023 Antibody screen TAMMI RUIZ Plan of Treatment Date Care Activity Detail Author Start: 03-18-2025 Lipid panel Lipid screen [place], [place] Start: 10-15-2023 Hemoglobin A1c measurement Diabetes: Hemoglobin A1C [facility] Start: 10-15-2023 Lipid panel Lipid Panel [facility] Start: 10-15-2023 Thyroid stimulating hormone measurement TSH Level [facility] Start: 06-27-2023 End: 06-27-2023 Patient encounter procedure 06/27/2023 10:00 AM EST Appointment [facility] [address] [place] [address] Theron David DO [address] [place] [address] [facility] Start: 04-07-2023 COVID-19 Vaccine ( season) COVID-19 Vaccine () [facility] Start: 04-07-2023 Influenza vaccination [facility] Start: 03-08-2023 End: 03-08-2023 Patient encounter procedure [facility] Start: 01-14-2023 Hemoglobin A1c measurement Diabetes: Hemoglobin A1C [facility] Start: 12-05-2022 End: 12-05-2022 Patient encounter procedure 12/05/2022 Office Visit Cardiology Vince Theron, DO [address] [place] [address] [facility] Start: 12-01-2022 End: 11-25-2023 Basic metabolic 1998 panel - Serum or Plasma Basic metabolic panel Lab Routine PAD (peripheral artery disease) (HCC) Expected: 12/01/2022 (Approximate), Expires: 11/25/2023 [facility] Work Phone: Immunizations Immunization Date Immunization Notes Care Provider Fa cility 09-19-2020 Moderna SARS-CoV-2 Vaccination Ach D rawstation [facility] Payers Date Payer Category Payer Unknown 2021 Unknown [id number] 2016 Medicare [id number] 2016 Medicare MEDICARE MEDICAR E PART A AND B xxxxxxxxxxx 2016-Present [phone] [place] [address] xxxxxxxxxxx [id number] 2016 Medicare 2016 Unknown [id number] 2016 Unknown [employer] MEDICARE SUPP xxxxxx-xx 2016-Present [phone] ATTN INDIVIDUAL CLAIMS [id number] [place] [address] xxxxxx-xx [id number] 1950 Unknown [id number] 1950 Unknown [id number] Social History Date Type Detail Facility Start: 05-13-2020 End: 09-02-2022 Tobacco smoking status [facility] Former smoker [facility] History of tobacco use Cigarette Smoker [place], [place] Start: 05-13-2020 End: 06-21-2023 Cigarettes smoked current (pack per day) - Reported [facility] Start: 05-13-2020 End: 09-02-2022 Tobacco use and exposure Never used [place] Start: 05-13-2020 End: 06-21-2023 Alcohol intake Current drinker of alcohol (finding) [place], [place] Start: 12-12-2018 Tobacco Comment Quit 09/2018 [place], [place] Start: 08-24-2016 Alcohol Comment rare [place], [place] Start: 1950 Sex Assigned At Not on file [place], [place] Start: 09-13-2022 End: 12-05-2022 Exposure to SARS-CoV-2 (event) Not sure [place] Start: 05-14-2019 End: 06-21-2023 Alcohol intake Yes [facility] History of tobacco use Current smoker [facility] Start: 06-08-2022 Tobacco Comment Current smoker .Quit smoking for a month - 6 years ago[address] [facility] Start: 11-24-2022 History SDOH IPV Fear [facility] Within the last year , have you been afraid of your partner or ex-partner? No [facility] Clinical Notes 11-16-2022 to 09-28-2023 Telephone Encounter - Emma Ghosh RCP - 09/28/2023 3:59 PM ESTTelephone Encounter - Emma Ghosh RCP - 09/28/2023 3:59 PM ESTPre-Procedure Note - Georgina Mnotemayor RN - 06/26/2023 1:17 PM EST Note Date & Type Note Facility 09-28-2023 Telephone encounter Note Mr. Harden was due for his annual lung screening CT scan in June 2023. Patient was scheduled for imaging on 09/01/2023, but did not complete. Navigator mailed referral for imaging, reminder letter, and lung screening brochure to patient's home address in an attempt to encourage adherence to annual lung screening. [facility] 09-28-2023 Miscellaneous Notes Mr. Harden was due for his annual lung screening CT scan in June 2023. Patient was scheduled for imaging on 09/01/2023, but did not complete. Navigator mailed referral for imaging, reminder letter, and lung screening brochure to patient's home address in an attempt to encourage adherence to annual lung screening. documented in this encounter [facility] 06-26-2023 Note Spoke with patient a nd reminded of pre-procedure instructions for dobutamine stress echo. [facility] 06-26-2023 Miscellaneous Notes Spoke with patient and reminded of pre-procedure instructions for dobutamine stress echo. documented in this encounter [facility] 06-26-2023 Note Formatting of this n ote might be different from the original. Spoke with patient and reminded of pre-procedure instructions for dobutamine stress echo. [facility] 06-22-2023 Nurse Note Patient presented to [facility] for dobutamine stress echo- patient had taken x2 doses of coreg over the past 24 hours, test terminated per protocol. Set up new appt for patient 06/27 10:00 at [facility], went over prep with patient. [facility] 06-22-2023 Nurse Note Patient presented to [facility] for dobutamine stress echo- patient had taken x2 doses of coreg over the past 24 hours, test terminated per protocol. Set up new appt for patient 06/27 10:00 at [facility], went over prep with patient. documented in this encounter [facility] 06-21-2023 Miscellaneous Notes Left message for patient on listed phone number with instructions for dobutamine stress echo, including to hold coreg for 24 hours prior to test. documented in this encounter [facility] 06-21-2023 Note Formatting of this n ote might be different from the original. Left message for patient on listed phone number with instructions for dobutamine stress echo, including to hold coreg for 24 hours prior to test. [facility] 12-12-2022 History of Presen t illness Narrative Order for Viagra sent documented in this encounter [facility] 12-05-2022 History of Presen t illness Narrative [facility] [address] [facility] [address] Dept: [phone] Dept Loc: [phone] Visit type: Established : 1950 Chief Complaint: Chief Complaint Patient presents with Hospital Follow-up Angio 11/24/22 History of Present Illness: Mauricio Harden is a 71 y.o. male with a history of paroxysmal atrial fibrillation status post PVI with Dr. Barrios in 2013, coronary artery disease status post prior PCI/LUIS ANTONIO to the proximal-mid left anterior descending and angioplasty only to the ostia of the first septal branch 12/05/17, pulmonary heart disease, vascular insufficiency, mild PAD, hypertension, hyperlipidemia, and tobacco use. Stress echo 12/2018: negative for ischemia. Recent cardiac catheterization for chest pain c/w angina 05/24/2019 which showed moderate distal LM stenosis. FFR and IVUS negative. Event monitor 06/03-07/02/2020 showed no A Fib. He has been intolerant to statins. He has coronary disease and a elevated LDL cholesterol. Started PCS K9 inhibitor in Aug 2020, and Zetia. PVR 10/14/22 are abnormal as expected. Progressed substantially since 2018. RLLL leg. Has multiple pain issues, some back, but clear calf claudication as well. R and L SFA disease -Angio 11/24/22 L radial showed bilateral long chronic SFA occlusions. He has failed Pletal (severe FLORES) and would like a surgical opinion. Has significant ambulatory limitations so I believe this is reasonable. Past Medical History: Past Medical History: Diagnosis Date CAD (coronary artery disease) Hx of angiography 12/2013 CTA Pulmonary veins Hyperlipidemia Hypertension Paroxysmal atrial fibrillation (CMS/HCC) (HCC) Pulmonary heart disease (HCC) Sleep disorder Tobacco abuse 1 PPD Past Surgical History Past Surgical History: Procedure Laterality Date ATRIAL ABLATION SURGERY 12/2013 PVI BACK SURGERY 05/21 and 07/21 twice CARDIAC PROCEDURE 12/05/2017 PCI of prox-mid LAD DOPPLER ECHOCARDIOGRAPHY (HISTORICAL) 12/17/2013 EF : 63% HERNIA REPAIR Bilateral INVASIVE VASCULAR PROCEDURE N/A 11/24/2022 Performed by Theron David DO at [facility] Cardiac Cath/EP Lab INVASIVE VASCULAR PROCEDURE Bilateral 11/24/2022 Performed by Theron David DO at [facility] Cardiac Cath/EP Lab TONSILLECTOMY (HISTORICAL) Family History Family History Problem Relation Name Age of Onset Coronary artery disease Mother Coronary artery disease Father Social History Social History Tobacco Use Smoking status: Former Packs/day: 1.00 Years: 40.00 Pack years: 40.00 Types: Cigarettes Smokeless tobacco: Never Tobacco comments: Current smoker. Quit smoking for a month - 6 years ago. Substance Use Topics Alcohol use: Yes Drug use: No Allergies: No Known Allergies Medications: Current Outpatient Medications: alirocumab (Praluent) 75 MG/ML injection, INJECT 1 ML INTO THE SKIN EVERY 14 DAYS, Disp: 6 mL, Rfl: 3 aspirin 81 MG chewable tablet, Chew 1 tablet (81 mg) daily., Disp: 30 tablet, Rfl: 11 B Complex capsule, as directed Orally, Disp: , Rfl: carvedilol (Coreg) 12.5 MG tablet, Take 12.5 mg by mouth in the morning and 12.5 mg in the evening. Take with meals., Disp: , Rfl: cholecalciferol (Vitamin D3) 25 MCG (1000 UT) tablet, Every 24 hours., Disp: , Rfl: coenzyme Q-10 100 MG capsule, as directed Orally, Disp: , Rfl: ezetimibe (Zetia) 10 MG tablet, TAKE ONE TABLET BY MOUTH DAILY, Disp: 90 tablet, Rfl: 3 gabapentin (Neurontin) 400 MG capsule, Take 400 mg by mouth 3 times daily., Disp: , Rfl: Magnesium 400 MG capsule, Take by mouth., Disp: , Rfl: oxyCODONE-acetaminophen (Percocet) 7.5-325 MG tablet, 1 TABLET NEEDED ORALLY EVERY 6 HRS 28 DAYS, Disp: , Rfl: Ozempic, 0.25 or 0.5 MG/DOSE, 2 MG/3ML solution pen-injector, INJECT 0.5 MG SUBCUTANEOUSLY WEEKLY FOR 30 DAYS., Disp: , Rfl: rOPINIRole XL (Requip XL) 4 MG 24 hr tablet, TAKE 1 TABLET BY MOUTH ONCE AT BEDTIME, Disp: , Rfl: rosuvastatin (Crestor) 10 MG tablet, Take 10 mg by mouth every morning., Disp: , Rfl: testosterone cypionate (Depo-Testosterone) 200 MG/ML injection, INJECT 0.35 ML INTRAMUSCULARLY TWICE A WEEK, Disp: , Rfl: Review of Systems: Review of Systems Constitutional: Positive for fatigue. Negative for activity change, chills, diaphoresis and fever. HENT: Negative for nosebleeds and trouble swallowing. Eyes: Negative for discharge and visual disturbance. Respiratory: Negative for apnea, cough, chest tightness, shortness of breath and wheezing. Cardiovascular: Negative for chest pain, palpitations and leg swelling. Gastrointestinal: Negative for abdominal distention, abdominal pain, blood in stool, diarrhea, nausea and vomiting. Endocrine: Negative for cold intolerance and heat intolerance. Genitourinary: Negative for hematuria. Musculoskeletal: Positive for back pain (right leg with nerve damage from back surgeries) and gait problem ( when I walk to far my legs just quit they freze up ). Negative for myalgias. Skin: Negative for color change and rash. Allergic/Immunologic: Negative. Neurological: Negative for dizziness, seizures, syncope, facial asymmetry, speech difficulty, weakness, light-headedness, numbness and headaches. Hematological: Does not bruise/bleed easily. Psychiatric/Behavioral: Negative for dysphoric mood. Physical Examination: Vitals: Vitals: 12/05/22 1600 BP: 134/68 Pulse: 76 Weight: 200 lb (90.7 kg) Height: 5' 10 (1.778 m) Body mass index is 28.7 kg/m . Physical Exam Laboratory Tests: Lab Results Component Value Date WBC 9.3 11/23/2022 HGB 18.1 (H) 11/23/2022 HCT 54.9 (H) 11/23/2022 MCV 97.3 11/23/2022 PLT 168 11/23/2022 Lab Results Component Value Date GLUCOSE 65 (L) 11/23/2022 CALCIUM 8.5 11/23/2022 NA 137 11/23/2022 K 4.0 11/23/2022 CO2 32 (H) 11/23/2022 CL 101 11/23/2022 BUN 12 11/23/2022 CREATININE 0.78 11/23/2022 Lab Results Component Value Date CHLPL 56 05/21/2021 CHLPL 242 03/21/2020 Lab Results Component Value Date TRIG 70 05/21/2021 TRIG 288 03/21/2020 Lab Results Component Value Date HDL 30 (L) 05/21/2021 Lab Results Component Value Date LDLCALC 12 05/21/2021 LDLCALC 153 03/21/2020 Assessment and Plan: 1. Ischemic heart disease. Status post PCI. Has recurrent distal left main trunk disease that we are managing medically. Did not tolerate the Imdur due to FLORES. He is [place] cardiovascular functional class 0-I for angina. [place] [employer] functional class 0. Cleared fo Fem Pop bypass. 2. PAD. Worsening lifestyle limiting claudication. He has had this for a while he is having more claudication. ABIs are worsening. LDL control excellent. Long bilateral SFA occlusions. Suitable for Fem [place] pop bypass. Referral to Vascular Surgery (Dr. Pulliam). 3. Hyperlipidemia. Statin intolerance. He is having insanely good results of the PCSK9 inhibitor and the ezetimibe. documented in this encounter [facility] 11-24-2022 Hospital Discharg e instructions Marj Ribeiro RN - 11/24/2022 3:03 PM EDT Call your doctor with any medication questions or if you notice any side effects from your medications. If you are unable to fill your medications, please call your Powerhouse Mechanic Supervisor immediately. The office number is located with your follow-up appointment information. Call your doctor if any redness or drainage from the wound site. DO NOT stop taking your medication unless instructed to do so by your doctor. Read the drug information material that were given to you and take medications as instructed by your doctor. New drugs may have been added to your medications, that will strengthen your heart and prevent re-stenosis of the coronary arteries. Drink 6 glasses of water (8 ounces each) over the next 24 hours. Water helps clear the dye from your body. No alcoholic beverages for 24 hours. It may interfere with healing. No exercise or sex for 5 days. Call 911 for chest pain, arm pain, nausea, neck pain, dizziness or unusual sweating AND your pain has not relieved with 2 doses of Nitroglycerin. Call your doctor if a lump at the puncture site enlarges or is larger than marble size. Call your doctor for numbness, tingling, or swelling of the fingers, hand or wrist. Call your doctor for increased area or bruising with discoloration extending into the arm. If bleeding occurs, hold pressure with your thumb against the puncture site and your finger against the back of the wrist for 10 minutes, if BLEEDING continues CALL 911. OK to shower. No tub baths, swimming pools or hot tub soaking for three days. Wash site daily with soap and water, dry gently. The healing wound should remain soft and dry. Keep site clean and dry, no soaking of wrist for three days (no cleaning or dish washing). Remove band aid the day after procedure and leave open to air. No bending of affected wrist for 24 hours. DO NOT lift more than three pounds for 3-5 days. No driving for 24 hours. PLEASE CALL YOUR HEART DOCTOR IF YOU CANNOT GET YOUR MEDICATIONS. THE NUMBER IS LISTED WITH YOUR FOLLOW-UP APPOINTMENT. Procedure Sedation Instructions If you have received sedation: you must have someone drive you home You should not drive a car, operate machinery, drink alcohol or perform any activity that requires alertness for the rest of the day. The effects of the sedative should be gone by tomorrow. Blood work in 5-7 days, see orders documented in this encounter [facility] [employer] 11-24-2022 Note Formatting of this n ote is different from the original. Date: 11/24/2022 Location: [facility] Cardiac Cath/EP Lab Name: Mauricio Harden, : 1950, Diagnosis Pre-op Diagnosis * PAD (peripheral artery disease) ([facility]) [I73.9] Post-op Diagnosis * PAD (peripheral artery disease) ([facility]) [I73.9] Procedures * BILATERAL LOWER EXTREMITY ANGIOGRAPHY * Angioplasty superficial femoral artery Surgeons * Theron David - Primary Procedure Summary Anesthesia: Moderate Sedation ASA: ASA status not filed in the log. Estimated Blood Loss: 10 mL Drains: * None in log * Staff: CV Molder Apprentice: Tracy Whitlock RN; Aracely Bustos RN CV Scrub: Adan Rutledge RT CV Monitor: Emilia English, RT; Julianna Santos RN Access: L radial 6F Diagnostic Imaging: L radial: Aortogram with ileofemoral runoff Selective R and L LE 2nd order vessel Findings: Distal aorta normal. R and L iliac tortuous angiographically normal. RLE: Nl MANAGER ORACLE RETAIL and PFA SFA flush ostial occlusion reconstituting exit of [place]. 3V runoff to R foot mild disease LLE: Nl MANAGER ORACLE RETAIL and PFA SFA flush ostial occlusion reconstituting exit of [place]. 3V runoff to R foot mild disease Intervention: None Follow-up: Plan medical management with supervised exerc ise rehab vs surgery Continue optimal RF management Theron David [employer] 11-24-2022 Note Formatting of this n ote is different from the original. Date: 11/24/2022 Location: [facility] Cardiac Cath/EP Lab Name: Mauricio Harden, : 1950, Diagnosis Pre-op Diagnosis * PAD (peripheral artery disease) ([facility]) [I73.9] Post-op Diagnosis * PAD (peripheral artery disease) ([facility]) [I73.9] Procedures * BILATERAL LOWER EXTREMITY ANGIOGRAPHY * Angioplasty superficial femoral artery Surgeons * Theron David - Primary Procedure Summary Anesthesia: Moderate Sedation ASA: ASA status not filed in the log. Estimated Blood Loss: 10 mL Drains: * None in log * Staff: CV Molder Apprentice: Tracy Whitlock RN; Aracely Bustos RN CV Scrub: Adan Rutledge RT CV Monitor: Emilia English, RT; Julianna Santos RN Access: L radial 6F Diagnostic Imaging: L radial: Aortogram with ileofemoral runoff Selective R and L LE 2nd order vessel Findings: Distal aorta normal. R and L iliac tortuous angiographically normal. RLE: Nl MANAGER ORACLE RETAIL and PFA SFA flush ostial occlusion reconstituting exit of [place]. 3V runoff to R foot mild disease LLE: Nl MANAGER ORACLE RETAIL and PFA SFA flush ostial occlusion reconstituting exit of [place]. 3V runoff to R foot mild disease Intervention: None Follow-up: Plan medical management with supervised exerc ise rehab vs surgery Continue optimal RF management Theron David [facility] 11-24-2022 Miscellaneous Notes Date: 11/24/2022 Location: [facility] Cardiac Cath/EP Lab Name: Mauricio Harden, : 1950, Diagnosis Pre-op Diagnosis * PAD (peripheral artery disease) ([facility]) [I73.9] Post-op Diagnosis * PAD (peripheral artery disease) ([facility]) [I73.9] Procedures * BILATERAL LOWER EXTREMITY ANGIOGRAPHY * Angioplasty superficial femoral artery Surgeons * Theron David - Primary Procedure Summary Anesthesia: Moderate Sedation ASA: ASA status not filed in the log. Estimated Blood Loss: 10 mL Drains: * None in log * Staff: CV Molder Apprentice: Tracy Whitlock RN; Aracely Bustos RN CV Scrub: RT Lilian CV Monitor: Emilia English RT; Julianna Santos RN Access: L radial 6F Diagnostic Imaging: L radial: Aortogram with ileofemoral runoff Selective R and L LE 2nd order vessel Findings: Distal aorta normal. R and L iliac tortuous angiographically normal. RLE: Nl MANAGER ORACLE RETAIL and PFA SFA flush ostial occlusion reconstituting exit of [place]. 3V runoff to R foot mild disease LLE: Nl MANAGER ORACLE RETAIL and PFA SFA flush ostial occlusion reconstituting exit of [place]. 3V runoff to R foot mild disease Intervention: None Follow-up: Plan medical management with supervised exerc ise rehab vs surgery Continue optimal RF management Theron David Sedation Plan Mallampati class: III - soft palate, base of uvula visible. Sedation plan: local anesthesia and moderate (conscious sedation) documented in this encounter [facility] 11-24-2022 Note Formatting of this n ote might be different from the original. Sedation Plan Mallampati class: III - soft palate, base of uvula visible. Sedation plan: local anesthesia and moderate (conscious sedation) [facility] 11-24-2022 Note Formatting of this n ote might be different from the original. Sedation Plan Mallampati class: III - soft palate, base of uvula visible. Sedation plan: local anesthesia and moderate (conscious sedation) [facility] 11-24-2022 Note Prep for procedure completed. [facility] 11-24-2022 Note Attestation signed by Theron David DO at 11/24/2022 10:18 AM I, Dr. Theron David , saw and evaluated the patient. This is my H&P from the patients office visit that has been recopied into the H & P section of this EMR. I personally obtained the cole and critical portions of the history and physical exam. The assessment and plan is mine as well. I have evaluated the patient today and there are no substantial changes in the exam , assessment, or plan from that detailed in my Office Note/ H & P. H+ P copied to chart from Dr. David progress note dated 11/16/[address] David . [facility] Cardiology [facility] [address] [place] [id number] Dept: [phone] Dept Loc: [phone] Visit type: Established : 1950 Chief Complaint: Chief Complaint Patient presents with Follow-up 2 mo History of Present Illness: Mauricio Harden is a 71 y.o. male with a history of paroxysmal atrial fibrillation status post PVI with Dr. Barrios in 2013, coronary artery disease status post prior PCI/LUIS ANTONIO to the proximal-mid left anterior descending and angioplasty only to the ostia of the first septal branch 12/05/17, pulmonary heart disease, vascular insufficiency, mild PAD, hypertension, hyperlipidemia, and tobacco use. Stress echo 12/2018: negative for ischemia. Recent cardiac catheterization for chest pain c/w angina 05/24/2019 which showed moderate distal LM stenosis. FFR and IVUS negative. Event monitor 06/03-07/02/2020 showed no A Fib. He has been intolerant to statins. He has coronary disease and a elevated LDL cholesterol. Started PCS K9 inhibitor in Aug 2020, and Zetia. -PVR 10/14/22 are abnormal as expected. Progressed substantially since 2018. RLLL leg. Has multiple pain issues, some back, but clear calf claudication as well. R and L SFA disease. Risk Factors are controlled. He is be a candidate for intervention if limited by claudication despite optimal medical management. -Labs done 11/11/22 reviewed. -Stopped Imdur due to FLORES, will see how he does. Past Medical History: Medical History Past Medical History: Diagnosis Date CAD (coronary artery disease) Hx of angiography 12/2013 CTA Pulmonary veins Hyperlipidemia Hypertension Paroxysmal atrial fibrillation (CMS/HCC) (HCC) Pulmonary heart disease (HCC) Sleep disorder Tobacco abuse 1 PPD Past Surgical History Surgical History Past Surgical History: Procedure Laterality Date ATRIAL ABLATION SURGERY 12/2013 PVI BACK SURGERY 05/21 and 07/21 twice CARDIAC PROCEDURE 12/05/2017 PCI of prox-mid LAD DOPPLER ECHOCARDIOGRAPHY (HISTORICAL) 12/17/2013 EF : 63% HERNIA REPAIR Bilateral TONSILLECTOMY (HISTORICAL) Family History Family History Family History Problem Relation Name Age of Onset Coronary artery disease Mother Coronary artery disease Father Social History Social History Tobacco Use Smoking status: Former Packs/day: 1.00 Years: 40.00 Pack years: 40.00 Types: Cigarettes Smokeless tobacco: Never Tobacco comments: Current smoker. Quit smoking for a month - 6 years ago. Substance Use Topics Alcohol use: Yes Drug use: No Allergies: No Known Allergies Medications: Current Outpatient Medications: alirocumab (Praluent) 75 MG/ML injection, INJECT 1 ML INTO THE SKIN EVERY 14 DAYS, Disp: 6 mL, Rfl: 3 aspirin 81 MG chewable tablet, Chew 1 tablet (81 mg) daily., Disp: 30 tablet, Rfl: 11 carvedilol (Coreg) 12.5 MG tablet, Take 12.5 mg by mouth., Disp: , Rfl: ezetimibe (Zetia) 10 MG tablet, TAKE ONE TABLET BY MOUTH DAILY, Disp: 90 tablet, Rfl: 3 gabapentin (Neurontin) 100 MG capsule, 2 CAPSULE ORALLY THREE TIMES A DAY 30 DAY(S), Disp: , Rfl: isosorbide mononitrate ER (Imdur) 60 MG 24 hr tablet, Take 1 tablet (60 mg) by mouth daily. Do not crush or chew., Disp: 30 tablet, Rfl: 11 Magnesium 400 MG capsule, Take by mouth., Disp: , Rfl: oxyCODONE-acetaminophen (Percocet) 7.5-325 MG tablet, 1 TABLET NEEDED ORALLY EVERY 6 HRS 28 DAYS, Disp: , Rfl: rOPINIRole XL (Requip XL) 4 MG 24 hr tablet, TAKE 1 TABLET BY MOUTH ONCE AT BEDTIME, Disp: , Rfl: rosuvastatin (Crestor) 10 MG tablet, Take 10 mg by mouth every morning., Disp: , Rfl: testosterone cypionate (Depo-Testosterone) 200 MG/ML injection, INJECT 0.35 ML INTRAMUSCULARLY TWICE A WEEK, Disp: , Rfl: VITAMIN D, CHOLECALCIFEROL, PO, Take by mouth., Disp: , Rfl: Review of Systems: Review of Systems Constitutional: Positive for fatigue. Negative for activity change. HENT: Negative for nosebleeds and trouble swallowing. Eyes: Negative for discharge and visual disturbance. Respiratory: Positive for shortness of breath. Negative for cough (more content not included)... [facility] 11-24-2022 Note Attestation signed by Theron David DO at 11/24/2022 10:18 AM I, Dr. Theron David , saw and evaluated the patient. This is my H&P from the patients office visit that has been recopied into the H & P section of this EMR. I personally obtained the cole and critical portions of the history and physical exam. The assessment and plan is mine as well. I have evaluated the patient today and there are no substantial changes in the exam , assessment, or plan from that detailed in my Office Note/ H & P. H+ P copied to chart from Dr. David progress note dated 11/16/[address] David . [facility] Cardiology [facility] [address] [place] [id number] Dept: [phone] Dept Loc: [phone] Visit type: Established : 1950 Chief Complaint: Chief Complaint Patient presents with Follow-up 2 mo History of Present Illness: Mauricio Harden is a 71 y.o. male with a history of paroxysmal atrial fibrillation status post PVI with Dr. Barrios in 2013, coronary artery disease status post prior PCI/LUIS ANTONIO to the proximal-mid left anterior descending and angioplasty only to the ostia of the first septal branch 12/05/17, pulmonary heart disease, vascular insufficiency, mild PAD, hypertension, hyperlipidemia, and tobacco use. Stress echo 12/2018: negative for ischemia. Recent cardiac catheterization for chest pain c/w angina 05/24/2019 which showed moderate distal LM stenosis. FFR and IVUS negative. Event monitor 06/03-07/02/2020 showed no A Fib. He has been intolerant to statins. He has coronary disease and a elevated LDL cholesterol. Started PCS K9 inhibitor in Aug 2020, and Zetia. -PVR 10/14/22 are abnormal as expected. Progressed substantially since 2018. RLLL leg. Has multiple pain issues, some back, but clear calf claudication as well. R and L SFA disease. Risk Factors are controlled. He is be a candidate for intervention if limited by claudication despite optimal medical management. -Labs done 11/11/22 reviewed. -Stopped Imdur due to FLORES, will see how he does. Past Medical History: Medical History Past Medical History: Diagnosis Date CAD (coronary artery disease) Hx of angiography 12/2013 CTA Pulmonary veins Hyperlipidemia Hypertension Paroxysmal atrial fibrillation (CMS/HCC) (HCC) Pulmonary heart disease (HCC) Sleep disorder Tobacco abuse 1 PPD Past Surgical History Surgical History Past Surgical History: Procedure Laterality Date ATRIAL ABLATION SURGERY 12/2013 PVI BACK SURGERY 05/21 and 07/21 twice CARDIAC PROCEDURE 12/05/2017 PCI of prox-mid LAD DOPPLER ECHOCARDIOGRAPHY (HISTORICAL) 12/17/2013 EF : 63% HERNIA REPAIR Bilateral TONSILLECTOMY (HISTORICAL) Family History Family History Family History Problem Relation Name Age of Onset Coronary artery disease Mother Coronary artery disease Father Social History Social History Tobacco Use Smoking status: Former Packs/day: 1.00 Years: 40.00 Pack years: 40.00 Types: Cigarettes Smokeless tobacco: Never Tobacco comments: Current smoker. Quit smoking for a month - 6 years ago. Substance Use Topics Alcohol use: Yes Drug use: No Allergies: No Known Allergies Medications: Current Outpatient Medications: alirocumab (Praluent) 75 MG/ML injection, INJECT 1 ML INTO THE SKIN EVERY 14 DAYS, Disp: 6 mL, Rfl: 3 aspirin 81 MG chewable tablet, Chew 1 tablet (81 mg) daily., Disp: 30 tablet, Rfl: 11 carvedilol (Coreg) 12.5 MG tablet, Take 12.5 mg by mouth., Disp: , Rfl: ezetimibe (Zetia) 10 MG tablet, TAKE ONE TABLET BY MOUTH DAILY, Disp: 90 tablet, Rfl: 3 gabapentin (Neurontin) 100 MG capsule, 2 CAPSULE ORALLY THREE TIMES A DAY 30 DAY(S), Disp: , Rfl: isosorbide mononitrate ER (Imdur) 60 MG 24 hr tablet, Take 1 tablet (60 mg) by mouth daily. Do not crush or chew., Disp: 30 tablet, Rfl: 11 Magnesium 400 MG capsule, Take by mouth., Disp: , Rfl: oxyCODONE-acetaminophen (Percocet) 7.5-325 MG tablet, 1 TABLET NEEDED ORALLY EVERY 6 HRS 28 DAYS, Disp: , Rfl: rOPINIRole XL (Requip XL) 4 MG 24 hr tablet, TAKE 1 TABLET BY MOUTH ONCE AT BEDTIME, Disp: , Rfl: rosuvastatin (Crestor) 10 MG tablet, Take 10 mg by mouth every morning., Disp: , Rfl: testosterone cypionate (Depo-Testosterone) 200 MG/ML injection, INJECT 0.35 ML INTRAMUSCULARLY TWICE A WEEK, Disp: , Rfl: VITAMIN D, CHOLECALCIFEROL, PO, Take by mouth., Disp: , Rfl: Review of Systems: Review of Systems Constitutional: Positive for fatigue. Negative for activity change. HENT: Negative for nosebleeds and trouble swallowing. Eyes: Negative for discharge and visual disturbance. Respiratory: Positive for shortness of breath. Negative for cough (more content not included)... [facility] 11-24-2022 Telephone encounter Note Prep for procedure completed. [facility] Work Phone: 11-24-2022 Miscellaneous Notes Prep for procedure completed. You are scheduled for angio with Dr David on 11/24/22 at 10am Report to [facility], 1st Floor Central Lounge by 8:30am to check in You can park in the [address] Deck or use [place] parking (for a nominal fee of $6-7) and enter the hospital using the [address] across from the parking deck. Proceed to the [place] elevators and take them to the first floor. Then follow the signs to the Central Lounge. You will need a designated delivery driver for the day of your procedure to take you home No driving for 24-72 hours post procedure Nothing to eat or drink after midnight Please take your am medications with sips of water prior to leaving for the hospital. Please take your Aspirin as usual before leaving for the hospital. Get blood work done by 11/21/22 Prepare for a possible overnight stay -Both written and verbal instructions given in office on 11/16/22. Pt verbalized understanding and knows to call the office with questions or concerns. Pt scheduled for an angio with GLADYS 11/24/22 10 am. Teach done need surg/proc. documented in this encounter [facility] 11-24-2022 History and physical note H+ P copied to chart from Dr. David progress note dated 11/16/[address] David . [facility] Cardiology [facility] [address] [facility] [address] Dept: [phone] Dept Loc: [phone] Visit type: Established : 1950 Chief Complaint: Chief Complaint Patient presents with Follow-up 2 mo History of Present Illness: Mauricio Harden is a 71 y.o. male with a history of paroxysmal atrial fibrillation status post PVI with Dr. Barrios in 2013, coronary artery disease status post prior PCI/LUIS ANTONIO to the proximal-mid left anterior descending and angioplasty only to the ostia of the first septal branch 12/05/17, pulmonary heart disease, vascular insufficiency, mild PAD, hypertension, hyperlipidemia, and tobacco use. Stress echo 12/2018: negative for ischemia. Recent cardiac catheterization for chest pain c/w angina 05/24/2019 which showed moderate distal LM stenosis. FFR and IVUS negative. Event monitor 06/03-07/02/2020 showed no A Fib. He has been intolerant to statins. He has coronary disease and a elevated LDL cholesterol. Started PCS K9 inhibitor in Aug 2020, and Zetia. -PVR 10/14/22 are abnormal as expected. Progressed substantially since 2018. RLLL leg. Has multiple pain issues, some back, but clear calf claudication as well. R and L SFA disease. Risk Factors are controlled. He is be a candidate for intervention if limited by claudication despite optimal medical management. -Labs done 11/11/22 reviewed. -Stopped Imdur due to FLORES, will see how he does. Past Medical History: Medical History Past Medical History: Diagnosis Date CAD (coronary artery disease) Hx of angiography 12/2013 CTA Pulmonary veins Hyperlipidemia Hypertension Paroxysmal atrial fibrillation (CMS/HCC) (HCC) Pulmonary heart disease (HCC) Sleep disorder Tobacco abuse 1 PPD Past Surgical History Surgical History Past Surgical History: Procedure Laterality Date ATRIAL ABLATION SURGERY 12/2013 PVI BACK SURGERY 05/21 and 07/21 twice CARDIAC PROCEDURE 12/05/2017 PCI of prox-mid LAD DOPPLER ECHOCARDIOGRAPHY (HISTORICAL) 12/17/2013 EF : 63% HERNIA REPAIR Bilateral TONSILLECTOMY (HISTORICAL) Family History Family History Family History Problem Relation Name Age of Onset Coronary artery disease Mother Coronary artery disease Father Social History Social History Tobacco Use Smoking status: Former Packs/day: 1.00 Years: 40.00 Pack years: 40.00 Types: Cigarettes Smokeless tobacco: Never Tobacco comments: Current smoker. Quit smoking for a month - 6 years ago. Substance Use Topics Alcohol use: Yes Drug use: No Allergies: No Known Allergies Medications: Current Outpatient Medications: alirocumab (Praluent) 75 MG/ML injection, INJECT 1 ML INTO THE SKIN EVERY 14 DAYS, Disp: 6 mL, Rfl: 3 aspirin 81 MG chewable tablet, Chew 1 tablet (81 mg) daily., Disp: 30 tablet, Rfl: 11 carvedilol (Coreg) 12.5 MG tablet, Take 12.5 mg by mouth., Disp: , Rfl: ezetimibe (Zetia) 10 MG tablet, TAKE ONE TABLET BY MOUTH DAILY, Disp: 90 tablet, Rfl: 3 gabapentin (Neurontin) 100 MG capsule, 2 CAPSULE ORALLY THREE TIMES A DAY 30 DAY(S), Disp: , Rfl: isosorbide mononitrate ER (Imdur) 60 MG 24 hr tablet, Take 1 tablet (60 mg) by mouth daily. Do not crush or chew., Disp: 30 tablet, Rfl: 11 Magnesium 400 MG capsule, Take by mouth., Disp: , Rfl: oxyCODONE-acetaminophen (Percocet) 7.5-325 MG tablet, 1 TABLET NEEDED ORALLY EVERY 6 HRS 28 DAYS, Disp: , Rfl: rOPINIRole XL (Requip XL) 4 MG 24 hr tablet, TAKE 1 TABLET BY MOUTH ONCE AT BEDTIME, Disp: , Rfl: rosuvastatin (Crestor) 10 MG tablet, Take 10 mg by mouth every morning., Disp: , Rfl: testosterone cypionate (Depo-Testosterone) 200 MG/ML injection, INJECT 0.35 ML INTRAMUSCULARLY TWICE A WEEK, Disp: , Rfl: VITAMIN D, CHOLECALCIFEROL, PO, Take by mouth., Disp: , Rfl: Review of Systems: Review of Systems Constitutional: Positive for fatigue. Negative for activity change. HENT: Negative for nosebleeds and trouble swallowing. Eyes: Negative for discharge and visual disturbance. Respiratory: Positive for shortness of breath. Negative for cough and wheezing. Cardiovascular: Negative for chest pain, palpitations and leg swelling. Gastrointestinal: Negative for abdominal distention, abdominal pain, blood in stool, diarrhea and nausea. Endocrine: Negative for cold intolerance and heat intolerance. Genitourinary: Negative for hematuria. Musculoskeletal: Positive for back pain (right leg with nerve damage from back surgeries) and myalgias (right thigh charley horse , feels like no circulation to right foot ). Negative for gait problem. Skin: Negative for color change and rash. Allergic/Immunologic: Negative. Neurological: Negative for dizziness, seizures, syncope, facial asymmetry, speech difficulty, weakness, light-headedness, numbness and headaches. Hematological: Does not bruise/bleed easily. Psychiatric/Behavioral: Negative for dysphoric mood. Physical Examination: Vitals: Vitals Vitals: 11/16/22 1354 BP: 127/74 Pulse: 64 Weight: 202 lb 9.6 oz (91.9 kg) Height: 5' 10 (1.778 m) Body mass index is 29.07 kg/m . Physical Exam Laboratory Tests: Lab Results Component Value Date WBC 12.3 (H) 10/14/2022 HGB 18.0 10/14/2022 HCT 55.6 (H) 10/14/2022 MCV 96.3 10/14/2022 PLT 189 10/14/2022 Lab Results Component Value Date GLUCOSE 83 10/14/2022 CALCIUM 9.1 10/14/2022 NA 143 10/14/2022 K 4.2 10/14/2022 CO2 31 (H) 10/14/2022 CL 103 10/14/2022 BUN 19 10/14/2022 CREATININE 0.82 10/14/2022 Lab Results Component Value Date CHLPL 56 05/21/2021 CHLPL 242 03/21/2020 Lab Results Component Value Date TRIG 70 05/21/2021 TRIG 288 03/21/2020 Lab Results Component Value Date HDL 30 (L) 05/21/2021 Lab Results Component Value Date LDLCALC 12 05/21/2021 LDLCALC 153 03/21/2020 LDL 16 LP(a) < 10 Assessment and Plan: 1. Ischemic heart disease. Status post PCI. Has recurrent distal left main trunk disease that we are managing medically. Did not tolerate the Imdur due to FLORES. He is [place] cardiovascular functional class 0-I for angina. [place] [employer] functional class 0 will see how he does off Imdur. . 2. PAD. Worsening lifestyle limiting claudication. He has had this for a while he is having more claudication. ABIs are worsening. LDL control excellent. Plan angio and intervention from the L wrist. Can treat both SFAs. 3. Hyperlipidemia. Statin intolerance. He is having insanely good results of the PCSK9 inhibitor and the ezetimibe. Addendum: patient will be undergoing angio 11/24. Labs completed. Teach completed. EKG AM of procedure. Associated attestation - Theron David DO - 11/24/2022 10:18 AM EDT I, Dr. Theron David , saw and evaluated the patient. This is my H&P from the patients office visit that has been recopied into the H & P section of this EMR. I personally obtained the cole and critical portions of the history and physical exam. The assessment and plan is mine as well. I have evaluated the patient today and there are no substantial changes in the exam , assessment, or plan from that detailed in my Office Note/ H & P. [employer] Phone: 11-24-2022 History and physical note H+ P copied to chart from Dr. David progress note dated 11/16/[address] David . [facility] Cardiology [facility] [address] [facility] [address] Dept: [phone] Dept Loc: [phone] Visit type: Established : 1950 Chief Complaint: Chief Complaint Patient presents with Follow-up 2 mo History of Present Illness: Mauricio Harden is a 71 y.o. male with a history of paroxysmal atrial fibrillation status post PVI with Dr. Barrios in 2013, coronary artery disease status post prior PCI/LUIS ANTONIO to the proximal-mid left anterior descending and angioplasty only to the ostia of the first septal branch 12/05/17, pulmonary heart disease, vascular insufficiency, mild PAD, hypertension, hyperlipidemia, and tobacco use. Stress echo 12/2018: negative for ischemia. Recent cardiac catheterization for chest pain c/w angina 05/24/2019 which showed moderate distal LM stenosis. FFR and IVUS negative. Event monitor 06/03-07/02/2020 showed no A Fib. He has been intolerant to statins. He has coronary disease and a elevated LDL cholesterol. Started PCS K9 inhibitor in Aug 2020, and Zetia. -PVR 10/14/22 are abnormal as expected. Progressed substantially since 2018. RLLL leg. Has multiple pain issues, some back, but clear calf claudication as well. R and L SFA disease. Risk Factors are controlled. He is be a candidate for intervention if limited by claudication despite optimal medical management. -Labs done 11/11/22 reviewed. -Stopped Imdur due to FLORES, will see how he does. Past Medical History: Medical History Past Medical History: Diagnosis Date CAD (coronary artery disease) Hx of angiography 12/2013 CTA Pulmonary veins Hyperlipidemia Hypertension Paroxysmal atrial fibrillation (CMS/HCC) (HCC) Pulmonary heart disease (HCC) Sleep disorder Tobacco abuse 1 PPD Past Surgical History Surgical History Past Surgical History: Procedure Laterality Date ATRIAL ABLATION SURGERY 12/2013 PVI BACK SURGERY 05/21 and 07/21 twice CARDIAC PROCEDURE 12/05/2017 PCI of prox-mid LAD DOPPLER ECHOCARDIOGRAPHY (HISTORICAL) 12/17/2013 EF : 63% HERNIA REPAIR Bilateral TONSILLECTOMY (HISTORICAL) Family History Family History Family History Problem Relation Name Age of Onset Coronary artery disease Mother Coronary artery disease Father Social History Social History Tobacco Use Smoking status: Former Packs/day: 1.00 Years: 40.00 Pack years: 40.00 Types: Cigarettes Smokeless tobacco: Never Tobacco comments: Current smoker. Quit smoking for a month - 6 years ago. Substance Use Topics Alcohol use: Yes Drug use: No Allergies: No Known Allergies Medications: Current Outpatient Medications: alirocumab (Praluent) 75 MG/ML injection, INJECT 1 ML INTO THE SKIN EVERY 14 DAYS, Disp: 6 mL, Rfl: 3 aspirin 81 MG chewable tablet, Chew 1 tablet (81 mg) daily., Disp: 30 tablet, Rfl: 11 carvedilol (Coreg) 12.5 MG tablet, Take 12.5 mg by mouth., Disp: , Rfl: ezetimibe (Zetia) 10 MG tablet, TAKE ONE TABLET BY MOUTH DAILY, Disp: 90 tablet, Rfl: 3 gabapentin (Neurontin) 100 MG capsule, 2 CAPSULE ORALLY THREE TIMES A DAY 30 DAY(S), Disp: , Rfl: isosorbide mononitrate ER (Imdur) 60 MG 24 hr tablet, Take 1 tablet (60 mg) by mouth daily. Do not crush or chew., Disp: 30 tablet, Rfl: 11 Magnesium 400 MG capsule, Take by mouth., Disp: , Rfl: oxyCODONE-acetaminophen (Percocet) 7.5-325 MG tablet, 1 TABLET NEEDED ORALLY EVERY 6 HRS 28 DAYS, Disp: , Rfl: rOPINIRole XL (Requip XL) 4 MG 24 hr tablet, TAKE 1 TABLET BY MOUTH ONCE AT BEDTIME, Disp: , Rfl: rosuvastatin (Crestor) 10 MG tablet, Take 10 mg by mouth every morning., Disp: , Rfl: testosterone cypionate (Depo-Testosterone) 200 MG/ML injection, INJECT 0.35 ML INTRAMUSCULARLY TWICE A WEEK, Disp: , Rfl: VITAMIN D, CHOLECALCIFEROL, PO, Take by mouth., Disp: , Rfl: Review of Systems: Review of Systems Constitutional: Positive for fatigue. Negative for activity change. HENT: Negative for nosebleeds and trouble swallowing. Eyes: Negative for discharge and visual disturbance. Respiratory: Positive for shortness of breath. Negative for cough and wheezing. Cardiovascular: Negative for chest pain, palpitations and leg swelling. Gastrointestinal: Negative for abdominal distention, abdominal pain, blood in stool, diarrhea and nausea. Endocrine: Negative for cold intolerance and heat intolerance. Genitourinary: Negative for hematuria. Musculoskeletal: Positive for back pain (right leg with nerve damage from back surgeries) and myalgias (right thigh charley horse , feels like no circulation to right foot ). Negative for gait problem. Skin: Negative for color change and rash. Allergic/Immunologic: Negative. Neurological: Negative for dizziness, seizures, syncope, facial asymmetry, speech difficulty, weakness, light-headedness, numbness and headaches. Hematological: Does not bruise/bleed easily. Psychiatric/Behavioral: Negative for dysphoric mood. Physical Examination: Vitals: Vitals Vitals: 11/16/22 1354 BP: 127/74 Pulse: 64 Weight: 202 lb 9.6 oz (91.9 kg) Height: 5' 10 (1.778 m) Body mass index is 29.07 kg/m . Physical Exam Laboratory Tests: Lab Results Component Value Date WBC 12.3 (H) 10/14/2022 HGB 18.0 10/14/2022 HCT 55.6 (H) 10/14/2022 MCV 96.3 10/14/2022 PLT 189 10/14/2022 Lab Results Component Value Date GLUCOSE 83 10/14/2022 CALCIUM 9.1 10/14/2022 NA 143 10/14/2022 K 4.2 10/14/2022 CO2 31 (H) 10/14/2022 CL 103 10/14/2022 BUN 19 10/14/2022 CREATININE 0.82 10/14/2022 Lab Results Component Value Date CHLPL 56 05/21/2021 CHLPL 242 03/21/2020 Lab Results Component Value Date TRIG 70 05/21/2021 TRIG 288 03/21/2020 Lab Results Component Value Date HDL 30 (L) 05/21/2021 Lab Results Component Value Date LDLCALC 12 05/21/2021 LDLCALC 153 03/21/2020 LDL 16 LP(a) < 10 Assessment and Plan: 1. Ischemic heart disease. Status post PCI. Has recurrent distal left main trunk disease that we are managing medically. Did not tolerate the Imdur due to FLORES. He is [place] cardiovascular functional class 0-I for angina. [place] [employer] functional class 0 will see how he does off Imdur. . 2. PAD. Worsening lifestyle limiting claudication. He has had this for a while he is having more claudication. ABIs are worsening. LDL control excellent. Plan angio and intervention from the L wrist. Can treat both SFAs. 3. Hyperlipidemia. Statin intolerance. He is having insanely good results of the PCSK9 inhibitor and the ezetimibe. Addendum: patient will be undergoing angio 11/24. Labs completed. Teach completed. EKG AM of procedure. Associated attestation - Theron David DO - 11/24/2022 10:18 AM EDT I, Dr. Theron David , saw and evaluated the patient. This is my H&P from the patients office visit that has been recopied into the H & P section of this EMR. I personally obtained the cole and critical portions of the history and physical exam. The assessment and plan is mine as well. I have evaluated the patient today and there are no substantial changes in the exam , assessment, or plan from that detailed in my Office Note/ H & P. documented in this encounter [facility] 11-17-2022 Telephone encounter Note You are scheduled for angio with Dr David on 11/24/22 at 10am Report to [facility], 1st Floor Central Lounge by 8:30am to check in You can park in the [address] Deck or use [employer] parking (for a nominal fee of $6-7) and enter the hospital using the [address] entrance across from the parking deck. Proceed to the [place] elevators and take them to the first floor. Then follow the signs to the [facility]. You will need a designated delivery driver for the day of your procedure to take you home No driving for 24-72 hours post procedure Nothing to eat or drink after midnight Please take your am medications with sips of water prior to leaving for the hospital. Please take your Aspirin as usual before leaving for the hospital. Get blood work done by 11/21/22 Prepare for a possible overnight stay -Both written and verbal instructions given in office on 11/16/22. Pt verbalized understanding and knows to call the office with questions or concerns. [facility] 11-16-2022 Telephone encounter Note Pt scheduled for an angio with GLADYS 11/24/22 10 am. Teach done need surg/proc. [facility] 11-16-2022 History of Presen t illness Narrative [facility] Cardiology [facility] C[facility] [address] [place] [id number] Dept: [phone] Dept Loc: [phone] Visit type: Established : 1950 Chief Complaint: Chief Complaint Patient presents with Follow-up 2 mo History of Present Illness: Mauricio Harden is a 71 y.o. male with a history of paroxysmal atrial fibrillation status post PVI with Dr. Barrios in 2013, coronary artery disease status post prior PCI/LUIS ANTONIO to the proximal-mid left anterior descending and angioplasty only to the ostia of the first septal branch 12/05/17, pulmonary heart disease, vascular insufficiency, mild PAD, hypertension, hyperlipidemia, and tobacco use. Stress echo 12/2018: negative for ischemia. Recent cardiac catheterization for chest pain c/w angina 05/24/2019 which showed moderate distal LM stenosis. FFR and IVUS negative. Event monitor 06/03-07/02/2020 showed no A Fib. He has been intolerant to statins. He has coronary disease and a elevated LDL cholesterol. Started PCS K9 inhibitor in Aug 2020, and Zetia. -PVR 10/14/22 are abnormal as expected. Progressed substantially since 2018. RLLL leg. Has multiple pain issues, some back, but clear calf claudication as well. R and L SFA disease. Risk Factors are controlled. He is be a candidate for intervention if limited by claudication despite optimal medical management. -Labs done 11/11/22 reviewed. -Stopped Imdur due to FLORES, will see how he does. Past Medical History: Past Medical History: Diagnosis Date CAD (coronary artery disease) Hx of angiography 12/2013 CTA Pulmonary veins Hyperlipidemia Hypertension Paroxysmal atrial fibrillation (CMS/HCC) (HCC) Pulmonary heart disease (HCC) Sleep disorder Tobacco abuse 1 PPD Past Surgical History Past Surgical History: Procedure Laterality Date ATRIAL ABLATION SURGERY 12/2013 PVI BACK SURGERY 05/21 and 07/21 twice CARDIAC PROCEDURE 12/05/2017 PCI of prox-mid LAD DOPPLER ECHOCARDIOGRAPHY (HISTORICAL) 12/17/2013 EF : 63% HERNIA REPAIR Bilateral TONSILLECTOMY (HISTORICAL) Family History Family History Problem Relation Name Age of Onset Coronary artery disease Mother Coronary artery disease Father Social History Social History Tobacco Use Smoking status: Former Packs/day: 1.00 Years: 40.00 Pack years: 40.00 Types: Cigarettes Smokeless tobacco: Never Tobacco comments: Current smoker. Quit smoking for a month - 6 years ago. Substance Use Topics Alcohol use: Yes Drug use: No Allergies: No Known Allergies Medications: Current Outpatient Medications: alirocumab (Praluent) 75 MG/ML injection, INJECT 1 ML INTO THE SKIN EVERY 14 DAYS, Disp: 6 mL, Rfl: 3 aspirin 81 MG chewable tablet, Chew 1 tablet (81 mg) daily., Disp: 30 tablet, Rfl: 11 carvedilol (Coreg) 12.5 MG tablet, Take 12.5 mg by mouth., Disp: , Rfl: ezetimibe (Zetia) 10 MG tablet, TAKE ONE TABLET BY MOUTH DAILY, Disp: 90 tablet, Rfl: 3 gabapentin (Neurontin) 100 MG capsule, 2 CAPSULE ORALLY THREE TIMES A DAY 30 DAY(S), Disp: , Rfl: isosorbide mononitrate ER (Imdur) 60 MG 24 hr tablet, Take 1 tablet (60 mg) by mouth daily. Do not crush or chew., Disp: 30 tablet, Rfl: 11 Magnesium 400 MG capsule, Take by mouth., Disp: , Rfl: oxyCODONE-acetaminophen (Percocet) 7.5-325 MG tablet, 1 TABLET NEEDED ORALLY EVERY 6 HRS 28 DAYS, Disp: , Rfl: rOPINIRole XL (Requip XL) 4 MG 24 hr tablet, TAKE 1 TABLET BY MOUTH ONCE AT BEDTIME, Disp: , Rfl: rosuvastatin (Crestor) 10 MG tablet, Take 10 mg by mouth every morning., Disp: , Rfl: testosterone cypionate (Depo-Testosterone) 200 MG/ML injection, INJECT 0.35 ML INTRAMUSCULARLY TWICE A WEEK, Disp: , Rfl: VITAMIN D, CHOLECALCIFEROL, PO, Take by mouth., Disp: , Rfl: Review of Systems: Review of Systems Constitutional: Positive for fatigue. Negative for activity change. HENT: Negative for nosebleeds and trouble swallowing. Eyes: Negative for discharge and visual disturbance. Respiratory: Positive for shortness of breath. Negative for cough and wheezing. Cardiovascular: Negative for chest pain, palpitations and leg swelling. Gastrointestinal: Negative for abdominal distention, abdominal pain, blood in stool, diarrhea and nausea. Endocrine: Negative for cold intolerance and heat intolerance. Genitourinary: Negative for hematuria. Musculoskeletal: Positive for back pain (right leg with nerve damage from back surgeries) and myalgias (right thigh charley horse , feels like no circulation to right foot ). Negative for gait problem. Skin: Negative for color change and rash. Allergic/Immunologic: Negative. Neurological: Negative for dizziness, seizures, syncope, facial asymmetry, speech difficulty, weakness, light-headedness, numbness and headaches. Hematological: Does not bruise/bleed easily. Psychiatric/Behavioral: Negative for dysphoric mood. Physical Examination: Vitals: Vitals: 11/16/22 1354 BP: 127/74 Pulse: 64 Weight: 202 lb 9.6 oz (91.9 kg) Height: 5' 10 (1.778 m) Body mass index is 29.07 kg/m . Physical Exam Laboratory Tests: Lab Results Component Value Date WBC 12.3 (H) 10/14/2022 HGB 18.0 10/14/2022 HCT 55.6 (H) 10/14/2022 MCV 96.3 10/14/2022 PLT 189 10/14/2022 Lab Results Component Value Date GLUCOSE 83 10/14/2022 CALCIUM 9.1 10/14/2022 NA 143 10/14/2022 K 4.2 10/14/2022 CO2 31 (H) 10/14/2022 CL 103 10/14/2022 BUN 19 10/14/2022 CREATININE 0.82 10/14/2022 Lab Results Component Value Date CHLPL 56 05/21/2021 CHLPL 242 03/21/2020 Lab Results Component Value Date TRIG 70 05/21/2021 TRIG 288 03/21/2020 Lab Results Component Value Date HDL 30 (L) 05/21/2021 Lab Results Component Value Date LDLCALC 12 05/21/2021 LDLCALC 153 03/21/2020 LDL 16 LP(a) < 10 Assessment and Plan: 1. Ischemic heart disease. Status post PCI. Has recurrent distal left main trunk disease that we are managing medically. Did not tolerate the Imdur due to FLORES. He is [place] cardiovascular functional class 0-I for angina. [place] [employer] functional class 0 will see how he does off Imdur. . 2. PAD. Worsening lifestyle limiting claudication. He has had this for a while he is having more claudication. ABIs are worsening. LDL control excellent. Plan angio and intervention from the L wrist. Can treat both SFAs. 3. Hyperlipidemia. Statin intolerance. He is having insanely good results of the PCSK9 inhibitor and the ezetimibe. documented in this encounter [facility] documented in this encounter [employer] Work Phone: Evaluation note* Diagnosis PAD (peripheral artery disease) ([facility]) Unspecified peripheral vascular disease [facility]* Diagnosis Abnormal weight gain Drug-induced adrenocortical insufficiency (CMS/HCC) ([facility]) Insomnia due to medical condition Organic insomnia, unspecified Deficiency of other specified B group vitamins Testicular hypofunction Other testicular hypofunction Encounter for screening for malignant neoplasm of prostate Type 2 diabetes mellitus without complications (CMS/HCC) ([facility]) Hypothyroidism, unspecified Vitamin D deficiency, unspecified Elevated prostate specific antigen (PSA) [facility]* Diagnosis Claudication (HCC)- Primary Unspecified peripheral vascular disease PAD (peripheral artery disease) ([facility]) Unspecified peripheral vascular disease Mixed hyperlipidemia Chronic ischemic heart disease Unspecified chronic ischemic heart disease Atheroscler of [place] artery of both legs with intermit claudication ([facility]) PAD (peripheral artery disease) ([facility])- Primary Unspecified peripheral vascular disease PAD (peripheral artery disease) (HCC) Unspecified peripheral vascular disease documented in this encounter [facility]* Diagnosis PAD (peripheral artery disease) (HCC)- Primary Unspecified peripheral vascular disease PAD (peripheral artery disease) (HCC) Unspecified peripheral vascular disease Chronic ischemic heart disease Unspecified chronic ischemic heart disease Claudication of both lower extremities (HCC) PAD (peripheral artery disease) (HCC) Unspecified peripheral vascular disease [facility] Diagnosis Chronic ischemic heart disease Unspecified chronic ischemic heart disease PAD (peripheral artery disease) ([facility]) Unspecified peripheral vascular disease Pure hypercholesterolemia [facility] Diagnosis Encounter for pre-operative cardiovascular clearance Other forms of chronic ischemic heart disease [facility] Diagnosis Pain in right leg documented in this encounter [facility] Reason for Referral Status Reason Specialty Diagnoses / Procedures Referre d By Contact Referred To Contact Open Cardiology Diagnoses Paroxysmal atrial fibrillation ([facility]) Procedures Cardiac event monitor [place] [address] [place] [address] Specialty Diagnoses / Procedures Referred By Tasha rosas Referred To Contact Radiology Diagnoses Chest pain, unspecified type Coronary artery disease involving [place] coronary artery of [place] heart without angina pectoris Procedures NM Myocardial Spect Rest Exercise or Rx [place] [address] [place] [address] Referral ID Status Reason Start Date Expiration Date Visits Re quested Visits Authorized [id number] Closed 09/01/2021 09/01/2022 1 1 Specialty Diagnoses / Procedures Referred By Tasha rosas Referred To Contact Cardiology Diagnoses PAD (peripheral artery disease) ([facility]) Procedures Vascular US lower extremity arterial PVR with exercise [place] [address] [place] [address] Referral ID Status Reason Start Date Expiration Date V isits Requested Visits Authorized [id number] Closed Perform Procedure 09/23/2022 03/22/2023 1 1 Specialty Diagnoses / Procedures Referred By Tasha t Referred To Contact Cardiology Diagnoses Encounter for pre-operative cardiovascular clearance Other forms of chronic ischemic heart disease Procedures Stress echocardiogram (TTE) dobutamine with contrast, bubble, strain, and 3D PRN order panel ID ECHO TTHRC R-T 2D W/WO M-MODE COMPLETE REST&ST ID ECHO TTHRC R-T 2D W/WO M-MODE REST&STRS CONT ECG ID DOPPLER ECHOCARD PULSE WAVE W/SPECTRAL DISPLAY ID DOP ECHOCARD COLOR FLOW VELOCITY MAPPING ID CV STRS TST XERS&/OR RX CONT ECG W/O I&R ID CV STRS TST XERS&/OR RX CONT ECG TRCG ONLY ID CV STRS TST XERS&/OR RX CONT ECG I&R ONLY Vince Theron DO [address] [place] [address] Referral ID Status Reason Start Date Expiration Date V isits Requested Visits Authorized [id number] Authorized 06/21/2023 06/20/2024 1 1 Specialty Diagnoses / Procedures Referred By Contac t Referred To Contact Cardiology Diagnoses Pain in right leg Procedures Vascular US lower extremity venous duplex right Tammi Pulliam MD [address] [facility] [address] [place] [address] Referral ID Status Reason Start Date Expiration Date V isits Requested Visits Authorized [id number] Pending Review 07/17/2023 07/16/2024 1 1 Assessments Diagnosis Paroxysmal atrial fibrillation (HCC) Atrial fibrillation Advance Directives Documents on File Type Date Recorded Patient Taffy Candy Maker Expl anation ACP-Advance Directive ACP-Power of Avionics Repair Technician Latest Code Status on File Code Status Date Activated Date Inactivated Comments Full Code 05/24/2019 12:22 PM 05/24/2019 4:52 PM Full Code 05/24/2019 9:07 AM 05/24/2019 12:22 PM Full Code 01/26/2018 7:41 PM 01/27/2018 3:16 PM Full Code 12/05/2017 11:09 AM 12/07/2017 3:43 PM Full Code 12/05/2017 7:15 AM 12/05/2017 11:09 AM Documents on File Type Date Recorded Patient Taffy Candy Maker Expl anation Advance Directives and Living Will Power of Avionics Repair Technician Latest Code Status on File Code Status Date Activated Date Inactivated Comments Full Code 05/24/2019 12:22 PM Full Code 05/24/2019 9:07 AM 05/24/2019 12:22 PM Full Code 01/26/2018 7:41 PM 01/27/2018 3:16 PM Full Code 12/05/2017 11:09 AM 12/07/2017 3:43 PM Full Code 12/05/2017 7:15 AM 12/05/2017 11:09 AM Latest Code Status on File Code Status Date Activated Date Inactivated Comments Full Code 11/24/2022 10:03 AM Latest Code Status on File Code Status Date Activated Date Inactivated Comments Full Code 11/24/2022 10:03 AM 11/24/2022 5:21 PM Latest Code Status on File Code Status Date Activated Date Inactivated Comments Full Code 11/24/2022 10:03 AM 11/24/2022 5:21 PM Documents on File Type Date Recorded Patient Taffy Candy Maker Expl anation Advance Directives and Livin g Will 06/22/2023 3:13 PM Power of Avionics Repair Technician 06/22/2023 3:13 PM Documents on File Type Date Recorded Patient Taffy Candy Maker Expl anation Advance Directives and Livin g Will 06/22/2023 3:13 PM Power of Avionics Repair Technician 06/22/2023 3:13 PM Discharge Instructions * Instructions* Deisy Simons, GRINDING ROOM SUPERVISOR - CRUISE DIRECTOR - 05/24/2019 You must wait at least 24 hours after last Viagra dose before you can take nitroglycerin dose and vice versa or else significant drop in blood pressure and even fatal syncope can occur. Call your doctor with any medication questions or if you notice any side effects from your medications. If you are unable to fill your medications, please call your Powerhouse Mechanic Supervisor immediately. The office number is located with your follow-up appointment information. Call your doctor if any redness or drainage from the wound site. DO NOT stop taking your medication unless instructed to do so by your doctor. Read the drug information material that were given to you and take medications as instructed by your doctor. New drugs may have been added to your medications, that will strengthen your heart and prevent re-stenosis of the coronary arteries. Drink 6 glasses of water (8 ounces each) over the next 24 hours. Water helps clear the dye from your body. No alcoholic beverages for 24 hours. It may interfere with healing. No exercise or sex for 5 days. Call 911 for chest pain, arm pain, nausea, neck pain, dizziness or unusual sweating AND your pain has not relieved with 2 doses of Nitroglycerin. Call your doctor if a lump at the puncture site enlarges or is larger than marble size. Call your doctor for numbness, tingling, or swelling of the fingers, hand or wrist. Call your doctor for increased area or bruising with discoloration extending into the arm. If bleeding occurs, hold pressure with your thumb against the puncture site and your finger againstthe back of the wrist for 10 minutes, if BLEEDING continues CALL 911. OK to shower. No tub baths, swimming pools or hot tub soaking for three days. Wash site daily with soap and water, dry gently. The healing wound should remain soft and dry. Keepsite clean and dry, no soaking of wrist for three days (no cleaning or dish washing). Remove band aid the day after procedure and leave open to air. No bending of affected wrist for 24 hours. DO NOT lift more than three pounds for 3-[address] days[address] driving for 24 hours. PLEASE CALL YOUR HEART DOCTOR IF YOU CANNOT GET YOUR MEDICATIONS. THE NUMBER IS LISTED WITH YOUR FOLLOW-UP APPOINTMENT. Procedure Sedation Instructions 1. If you have received sedation: you must have someone drive you home 2. You should not drive a car, operate machinery, drink alcohol or perform any activity that requires alertness for the rest of the day. The effects of the sedative should be gone by tomorrow. Blood work in 5-7 days, see orders documented in this encounter Summary Purpose Family History No Family History Records FoundNo Family History Records FoundNo Family History Records FoundNo Family History Records FoundNo Family History Records Found Additional Source Comments (unrecognized sect ion and content) No Status Records FoundNo Status Records FoundNo Status Records FoundNo Status Records FoundNo Status Records Found INFORMATION SOURCE (unrecogn ized section and content) DATE CREATED AUTHOR AUTHOR'S ORGANIZ ATION 05/18/2022 [facility] DATE CREATED AUTHOR AUTHOR'S ORGANIZ ATION 06/04/2022 [facility] DATE CREATED AUTHOR AUTHOR'S ORGANIZ ATION 07/19/2023 [facility] DATE CREATED AUTHOR AUTHOR'S ORGANIZ ATION 09/23/2023 [facility] nter Care Teams (unrecognized sec tion and content) Director Of Retail Relationship Specialty Start Date End Date Theron David DO [address] [facility] [address] [place] [address] PCP - General Cardiology 10/11/22 Director Of Retail Relationship Specialty Start Date End Date Theron David DO [address] [facility] [address] [place] [address] PCP - General Cardiology 10/11/22 Director Of Retail Relationship Specialty Start Date End Date Andre Ramsey DO [address] [facility] [place] [address] PCP - General Internal Medicine 11/04/22 Director Of Retail Relationship Specialty Start Date End Date Andre Ramsey DO [address] [facility] [place] [address] PCP - General Internal Medicine 11/04/22 Director Of Retail Relationship Specialty Start Date End Date Andre Ramsey DO [address] [facility] [place] [address] PCP - General Internal Medicine 11/04/22 Director Of Retail Relationship Specialty Start Date End Date Andre Ramsey DO [address] [facility] [place] [address] PCP - General Internal Medicine 11/04/22 Director Of Retail Relationship Specialty Start Date End Date Andre Ramsey DO [address] [facility] [place] [address] PCP - General Internal Medicine 11/04/22 Director Of Retail Relationship Specialty Start Date End Date Andre Ramsey DO [address] [facility] [place] [address] PCP - General Internal Medicine 11/04/22 Director Of Retail Relationship Specialty Start Date End Date Andre Ramsey DO [address] [facility] [place] [address] PCP - General Internal Medicine 11/04/22 Director Of Retail Relationship Specialty Start Date End Date Andre Ramsey DO [address] [facility] [place], [place] [address] PCP - General Internal Medicine 11/04/22 Director Of Retail Relationship Specialty Start Date End Date Andre Ramsey DO [address] [facility] [place], [place] [id number] PCP - General Internal Medicine 11/04/22 Theron Dvaid DO [address] [place] [address] Consulting Physician Cardiology 07/07/23 Director Of Retail Relationship Specialty Start Date End Date Andre Ramsey DO [address] [facility] [place], [place] [address] PCP - General Internal Medicine 11/04/22 Theron David DO [address] [place] [address] Consulting Physician Cardiology 07/07/23 Director Of Retail Relationship Specialty Start Date End Date Andre Ramsey DO [address] [facility] [place], [place] [id number] PCP - General Internal Medicine 11/04/22 Theron David DO [address] [facility] [address] [place] [address] Consulting Physician Cardiology 07/07/23 Reason for Visit (unrecogniz ed section and content) Referral ID Status Reason Start Date Expiration Date V isits Requested Visits Authorized [id number] Closed Perform Procedure 09/23/2022 03/22/2023 1 1 Reason Comments Follow-up 2 mo Reason Onset Date Comments ANGIO 11/16/2022 Specialty Diagnoses / Procedures Referred By Contac t Referred To Contact Diagnoses PAD (peripheral artery disease) (HCC) PAD (peripheral artery disease) (HCC) [I73.9] Procedures BILATERAL LOWER EXTREMITY ANGIOGRAPHY Angioplasty superficial femoral [facility] [place] [address] [facility] Cardiac Cath/Ep Lab [address] [place] [id number] Referral ID Status Reason Start Date Expiration Date Visits Re quested Visits Authorized [id number] 1 1 Reason Comments Hospital Follow-up Angio 11/24/22 Reason Comments Med Refill Specialty Diagnoses / Procedures Referred By Contac t Referred To Contact Cardiology Diagnoses Encounter for pre-operative cardiovascular clearance Other forms of chronic ischemic heart disease Procedures Stress echocardiogram (TTE) dobutamine with contrast, bubble, strain, and 3D PRN order panel ID ECHO TTHRC R-T 2D W/WO M-MODE COMPLETE REST&ST ID ECHO TTHRC R-T 2D W/WO M-MODE REST&STRS CONT ECG ID DOPPLER ECHOCARD PULSE WAVE W/SPECTRAL DISPLAY ID DOP ECHOCARD COLOR FLOW VELOCITY MAPPING ID CV STRS TST XERS&/OR RX CONT ECG W/O I&R ID CV STRS TST XERS&/OR RX CONT ECG TRCG ONLY ID CV STRS TST XERS&/OR RX CONT ECG I&R ONLY [facility] [place] [address] Referral ID Status Reason Start Date Expiration Date V isits Requested Visits Authorized [id number] Authorized 06/21/2023 06/20/2024 1 1 Referral ID Status Reason Start Date Expiration Date Visits Re quested Visits Authorized [id number] Closed 06/21/2023 06/20/2024 1 1 Specialty Diagnoses / Procedures Referred By Contac t Referred To Contact Cardiology Diagnoses Pain in right leg Procedures Vascular US lower extremity venous duplex right Tammi Pulliam MD [address] [place] [address] Referral ID Status Reason Start Date Expiration Date V isits Requested Visits Authorized [id number] Pending Review 07/17/2023 07/16/2024 1 1 Reason Onset Date Comments Care Coordination 09/28/2023 Annual Lung Sc reening Reminder Scheduled Active and Recently Administ ered Medications (unrecognized section and content) PRN Medication Order 11/22/2022 11/23/2022 11/24/2022 heparin injection (CANCELED) IntraVENous, As needed, Starting on Aleksandra 11/24/22 at 1252, Intraprocedure 1252 (Given - Provid er: Aracely Bustos, CONCHITA) iodixanol (VISIPaque) 320 MG/ML injection (COMPLETED) IntraVENous, Continuous PRN, Starting on Aleksandra 11/24/22 at 1307, Intraprocedure 1307 (New Bag - Prov ider: Theron David DO - Comment: arterial sheath L radial) lidocaine (Xylocaine) 1 % injection (CANCELED) As needed, Starting on Aleksandra 11/24/22 at 1230, Intraprocedure 1230 (Given - Provid er: Theron David DO) midazolam (Versed) injection (CANCELED) IntraVENous, As needed, Starting on Aleksandra 11/24/22 at 1229, Intraprocedure 1229 (Given - Provid er: Aracely Bustos RN) sodium chloride 0.9 % infusion 5-250 mL/hr, IntraVENous, PRN, if patient receiving piggyback infusions and maintenance fluids are not ordered OR KVO fluids to protect IV site / prevent frequent line interruptions / long duration, Starting on Aleksandra 11/24/22 at 1003, Preprocedure, For piggyback infusion, administer at same rate as piggyback for a total of 25 mL. Enter 25 mL into dose field and piggyback rate into rate field of order. If piggyback is infusing at a rate less than 100 mL/hr, enter 25 mL into dose field and 100 mL/hr into rate field of order. For KVO fluids, enter rate of 20 mL/hr or less into rate field of order. sodium chloride 0.9 % infusion (COMPLETED) IntraVENous, Continuous PRN, Starting on Aleksandra 11/24/22 at 1232, Intraprocedure 1232 (New Bag - Prov ider: Theron David DO) sodium chloride 0.9% (NS) flush 5-40 mL 5-40 mL, IntraVENous, PRN, line care, After every IV line use, Starting on Aleksandra 11/24/22 at 1003, Preprocedure, For Line Patency: Peripheral IV = 5 mL; Midline or Central Line = 10 mL/lumen. If following IV push medication, administer flush at same rate as the IV push. Flush volume is determined by type of infusion therapy being given. For non-viscous solutions use: Peripheral IV = 5 mL Midline or Central Line = 10 mL/lumen For viscous solutions (i.e. blood components, parenteral nutrition, contrast media, or after obtaining blood sample) use: Peripheral IV = 10 mL Midline or Central Line = 20 mL/lumen FOR RECORDS PERTAINING TO PATIENTS WHO ARE OR HAVE BEEN ENROLLED IN A CHEMICAL DEPENDENCY/SUBSTANCEABUSE PROGRAM, SOME INFORMATION MAY BE OMITTED. This clinical summary was aggregated from multiple sources. Caution should be exercised in using it in the provision of clinical care. This summary normalizes information from multiple sources, and as a consequence, information in this document may materially change the coding, format and clinical context of patient data. In addition, data may be omitted in some cases. CLINICAL DECISIONS SHOULD BE BASED ON THE PRIMARY CLINICAL RECORDS. [facility]. provides no warranty or guarantee of the accuracy or completeness of information in this document.
== END | disposition home or self-care (01) ==
PROVIDERS: Referring Provider Physician Assistant; Visit Provider Physician Assistant
DX: I70.213 Atherosclerosis of native arteries of extremities with intermittent claudication, bilateral legs (principal); Z48.812 Encounter for surgical aftercare following surgery on the circulatory system; Z95.828 Presence of other vascular implants and grafts
CPT/HCPCS: 93922; 93926